=== PATIENT | male | born 1950 | race African-American/Black ===

== ENCOUNTER 2017-07-01 17:23 | Inpatient (IN) ==
[2017-07-01] MEDS ORDERED: DOCUSATE SODIUM 100 MG CAPSULE PO PRN (18:22)
[2017-07-01] MEDS ORDERED: ONDANSETRON 4 MG/2 ML VIAL IV PRN (18:22)
[2017-07-01 19:11] LABS: Basophils # 0.1 10*3/uL (0.0-0.2); Basophils % 0.5 % (0.0-0.8); Eosinophils # 0.1 10*3/uL (0.0-0.87); Eosinophils % 0.2 % (0.00-10.9); Hematocrit 39.5 VOL% (42.0-52.0); Hemoglobin 12.6 GM/DL (14.0-18.0); Immature Granulocytes % 0.7 %; Immature Granulocytes Absolute 0.14 #; Lymphocytes # 1.7 10*3/uL (1.4-4.0); Lymphocytes % 8.4 % (21.2-54.2); Mean Corpuscular HGB Conc 31.9 GM/DL (32-36); Mean Corpuscular Hemoglobin 29 PG (27-34); Mean Corpuscular Volume 89.8 FL (87-102); Mean Platelet Volume 9.5 FL (9.6-12.0); Monocytes # 2.1 10*3/uL (0.11-0.8); Monocytes % 10.1 % (1.7-12.7); Neutrophils # 16.6 10*3/uL (1.4-7.4); Neutrophils % 80.1 % (38.7-73.9); Platelet Count 161 T/CUMM (130-400); White Blood Count 20.8 T/CUMM (4-12)
[2017-07-01 19:37] LABS: Albumin 3.6 G/DL (3.4-5.0); Calcium 8.8 MG/DL (8.5-10.1); Osmolality,Calculated 276.7 MOS/KG (273-304); Potassium 3.9 MMOL/L (3.5-5.1); Total Protein 7.3 G/DL (6.4-8.3)
[2017-07-01] MEDS: LEVOFLOXACIN INJ 500 MG in PREMIX 1 EACH IV SCH (19:51)
[2017-07-01] MEDS: SODIUM CHLORIDE 0.9% 1,000 ML IV SCH (19:51)
[2017-07-01] MEDS ORDERED: ENOXAPARIN 30 MG/0.3 ML SYRINGE SUBCUT SCH (21:00)
[2017-07-01 21:39] LABS: Band Neutrophils 7 % (0-10); Eosinophils 1 % (0-10); Lymphocytes 2 % (20-55); Segmented Neutrophils 81 % (50-85); Total Cells Counted 100
[2017-07-01 22:35] LABS: Apearance,Urine Slightly Hazy (Clear); Bacteria,Urine Occasional /HPF (Few); Bilirubin,Urine Negative (Negative); Blood, Urine Small mg/dL (Negative); Glucose,Urine (UA) Negative (Negative); Ketones,Urine 5 mg/dL (Negative); Mucus,Urine Occasional /LPF (Occasional); Nitrite,Urine Negative (Negative); Protein,Urine 30 MG/DL; RBC,Urine 47 /HPF (0-4); Sperm,Urine Moderate /HPF (Negative); Urine Color Yellow (Yellow); Urine Specific Gravity 1.019 (1.001-1.035); WBC,Urine 27 /HPF (0-6)
[2017-07-02] MEDS: ACETAMINOPHEN 325 MG TABLET PO PRN ×2 (04:35→20:20)
[2017-07-02] MEDS: PANTOPRAZOLE 40 MG TABLET PO SCH (10:03)
[2017-07-02] MEDS: CHLORTHALIDONE 25 MG TABLET PO SCH (10:03)
[2017-07-02] MEDS: lamoTRIgine 100 MG TABLET PO SCH ×2 (10:03→20:19)
[2017-07-02] MEDS: CHOLECALCIFEROL 1,000 UNIT TABLET PO SCH (10:03)
[2017-07-02] MEDS ORDERED: MAGNESIUM HYDROXIDE SUSP 30 ML UDCUP PO PRN (11:58)
[2017-07-02] MEDS: HYDROCORTISONE 25 MG SUPP RECTAL SCH ×2 (16:42→20:25)
[2017-07-02] MEDS: SODIUM CHLORIDE 0.9% 1,000 ML IV SCH (18:09)
[2017-07-02] MEDS: DILTIAZEM CD 180 MG CAPSULE PO SCH (20:19)
[2017-07-02] MEDS: ENOXAPARIN 40 MG/0.4 ML SYRINGE SUBCUT SCH (20:20)
[2017-07-02] MEDS: LEVOFLOXACIN INJ 500 MG in PREMIX 1 EACH IV SCH (20:21)
[2017-07-02] MEDS: LATANOPROST 0.005% OPH SOLN 2.5 ML BOTTLE BOTH EYES SCH (20:25)
[2017-07-03 08:08] LABS: Basophils # 0.1 10*3/uL (0.0-0.2); Basophils % 0.5 % (0.0-0.8); Eosinophils # 0.2 10*3/uL (0.0-0.87); Eosinophils % 0.8 % (0.00-10.9); Hematocrit 41.3 VOL% (42.0-52.0); Hemoglobin 12.9 GM/DL (14.0-18.0); Immature Granulocytes % 0.9 %; Immature Granulocytes Absolute 0.21 #; Lymphocytes # 1.8 10*3/uL (1.4-4.0); Lymphocytes % 7.7 % (21.2-54.2); Mean Corpuscular HGB Conc 31.2 GM/DL (32-36); Mean Corpuscular Hemoglobin 28 PG (27-34); Mean Corpuscular Volume 89.6 FL (87-102); Mean Platelet Volume 10.1 FL (9.6-12.0); Monocytes # 2.1 10*3/uL (0.11-0.8); Monocytes % 8.9 % (1.7-12.7); Neutrophils # 18.7 10*3/uL (1.4-7.4); Neutrophils % 81.2 % (38.7-73.9); Platelet Count 170 T/CUMM (130-400); Red Blood Count 4.61 MC/CUMM (3.8-5.5); Red Cell Distribution Width 13.1 % (9.3-17.3)
[2017-07-03 08:25] LABS: Calcium 8.6 MG/DL (8.5-10.1); Osmolality,Calculated 276.7 MOS/KG (273-304); Potassium 3.7 MMOL/L (3.5-5.1)
[2017-07-03 08:26] LABS: Band Neutrophils 5 % (0-10); Lymphocytes 5 % (20-55); Segmented Neutrophils 78 % (50-85); Total Cells Counted 100
[2017-07-03 08:27] LABS: Hypochromasia 1+; Microcytosis Slight; Platelet Estimate Adequate
[2017-07-03] MEDS: CHOLECALCIFEROL 1,000 UNIT TABLET PO SCH (09:39)
[2017-07-03] MEDS: lamoTRIgine 100 MG TABLET PO SCH ×2 (09:40→20:31)
[2017-07-03] MEDS: PANTOPRAZOLE 40 MG TABLET PO SCH (09:40)
[2017-07-03] MEDS: HYDROCORTISONE 25 MG SUPP RECTAL SCH ×3 (09:40→20:31)
[2017-07-03] MEDS: CHLORTHALIDONE 25 MG TABLET PO SCH (09:40)
[2017-07-03] MEDS: METHEN/SOD PHOS/METH BLUE/HYOS TABLET PO SCH ×2 (09:55→16:32)
[2017-07-03] MEDS: LEVOFLOXACIN INJ 500 MG in PREMIX 1 EACH IV SCH (20:30)
[2017-07-03] MEDS: ENOXAPARIN 40 MG/0.4 ML SYRINGE SUBCUT SCH (20:30)
[2017-07-03] MEDS: SODIUM CHLORIDE 0.9% 1,000 ML IV SCH (20:31)
[2017-07-03] MEDS: DILTIAZEM CD 180 MG CAPSULE PO SCH (20:31)
[2017-07-03] MEDS: LATANOPROST 0.005% OPH SOLN 2.5 ML BOTTLE BOTH EYES SCH (20:32)
[2017-07-04 06:18] LABS: Basophils # 0.1 10*3/uL (0.0-0.2); Basophils % 0.5 % (0.0-0.8); Eosinophils # 0.2 10*3/uL (0.0-0.87); Eosinophils % 1.5 % (0.00-10.9); Hemoglobin 12.2 GM/DL (14.0-18.0); Immature Granulocytes % 0.8 %; Immature Granulocytes Absolute 0.12 #; Lymphocytes # 1.4 10*3/uL (1.4-4.0); Lymphocytes % 8.9 % (21.2-54.2); Mean Corpuscular Hemoglobin 29 PG (27-34); Mean Corpuscular Volume 87.1 FL (87-102); Mean Platelet Volume 9.7 FL (9.6-12.0); Monocytes # 2.1 10*3/uL (0.11-0.8); Monocytes % 13.4 % (1.7-12.7); Neutrophils # 11.9 10*3/uL (1.4-7.4); Neutrophils % 74.9 % (38.7-73.9); Platelet Count 169 T/CUMM (130-400); Red Blood Count 4.25 MC/CUMM (3.8-5.5); White Blood Count 15.8 T/CUMM (4-12)
[2017-07-04 06:50] LABS: Albumin 2.7 G/DL (3.4-5.0); Bilirubin,Total 0.8 MG/DL (0.2-1.0); Osmolality,Calculated 277.5 MOS/KG (273-304); Potassium 3.6 MMOL/L (3.5-5.1)
[2017-07-04] MEDS ORDERED: PIPERACILLIN/TAZOBACTAM 3,375 MG in SODIUM CHLORIDE 0.9% 100 ML IV SCH (08:00)
[2017-07-04] MEDS: CHLORTHALIDONE 25 MG TABLET PO SCH (09:15)
[2017-07-04] MEDS: CHOLECALCIFEROL 1,000 UNIT TABLET PO SCH (09:15)
[2017-07-04] MEDS: lamoTRIgine 100 MG TABLET PO SCH ×2 (09:15→21:33)
[2017-07-04] MEDS: METHEN/SOD PHOS/METH BLUE/HYOS TABLET PO SCH ×2 (09:16→17:48)
[2017-07-04] MEDS: PANTOPRAZOLE 40 MG TABLET PO SCH (09:16)
[2017-07-04] MEDS: HYDROCORTISONE 25 MG SUPP RECTAL SCH ×3 (09:16→21:34)
[2017-07-04] MEDS ORDERED: VANCOMYCIN INJ 1,250 MG in SODIUM CHLORIDE 0.9% 250 ML IV SCH (10:00)
[2017-07-04] MEDS: PHENAZOPYRIDINE 95 MG TABLET PO SCH (17:48)
[2017-07-04] MEDS: SODIUM CHLORIDE 0.9% 1,000 ML IV SCH (17:48)
[2017-07-04] MEDS: NAFCILLIN 2,000 MG in SODIUM CHLORIDE 0.9% 100 ML IV SCH ×2 (17:49→21:32)
[2017-07-04] MEDS: DILTIAZEM CD 180 MG CAPSULE PO SCH (21:33)
[2017-07-04] MEDS: ENOXAPARIN 40 MG/0.4 ML SYRINGE SUBCUT SCH (21:34)
[2017-07-04] MEDS: LATANOPROST 0.005% OPH SOLN 2.5 ML BOTTLE BOTH EYES SCH (21:39)
[2017-07-05] MEDS: NAFCILLIN 2,000 MG in SODIUM CHLORIDE 0.9% 100 ML IV SCH ×6 (00:52→20:53)
[2017-07-05 05:50] LABS: Basophils # 0.1 10*3/uL (0.0-0.2); Basophils % 1.2 % (0.0-0.8); Eosinophils # 0.3 10*3/uL (0.0-0.87); Eosinophils % 3.5 % (0.00-10.9); Hematocrit 37.8 VOL% (42.0-52.0); Hemoglobin 11.8 GM/DL (14.0-18.0); Immature Granulocytes % 0.9 %; Immature Granulocytes Absolute 0.07 #; Lymphocytes # 1.4 10*3/uL (1.4-4.0); Lymphocytes % 17.3 % (21.2-54.2); Mean Corpuscular HGB Conc 31.2 GM/DL (32-36); Mean Corpuscular Hemoglobin 28 PG (27-34); Mean Corpuscular Volume 89.4 FL (87-102); Mean Platelet Volume 9.7 FL (9.6-12.0); Monocytes # 1.2 10*3/uL (0.11-0.8); Monocytes % 14.9 % (1.7-12.7); Neutrophils # 4.9 10*3/uL (1.4-7.4); Neutrophils % 62.2 % (38.7-73.9); Platelet Count 182 T/CUMM (130-400); Red Blood Count 4.23 MC/CUMM (3.8-5.5); Red Cell Distribution Width 13.2 % (9.3-17.3); White Blood Count 7.8 T/CUMM (4-12)
[2017-07-05] MEDS: lamoTRIgine 100 MG TABLET PO SCH ×2 (09:00→20:53)
[2017-07-05] MEDS: PANTOPRAZOLE 40 MG TABLET PO SCH (09:00)
[2017-07-05] MEDS: PHENAZOPYRIDINE 95 MG TABLET PO SCH ×2 (09:00→17:13)
[2017-07-05] MEDS: CHOLECALCIFEROL 1,000 UNIT TABLET PO SCH (09:00)
[2017-07-05] MEDS: METHEN/SOD PHOS/METH BLUE/HYOS TABLET PO SCH ×2 (09:00→17:13)
[2017-07-05] MEDS: CHLORTHALIDONE 25 MG TABLET PO SCH (09:00)
[2017-07-05] MEDS: HYDROCORTISONE 25 MG SUPP RECTAL SCH ×3 (09:01→20:54)
[2017-07-05] MEDS: DILTIAZEM CD 180 MG CAPSULE PO SCH (20:53)
[2017-07-05] MEDS: LATANOPROST 0.005% OPH SOLN 2.5 ML BOTTLE BOTH EYES SCH (20:53)
[2017-07-05] MEDS: ENOXAPARIN 40 MG/0.4 ML SYRINGE SUBCUT SCH (20:54)
[2017-07-06] MEDS: NAFCILLIN 2,000 MG in SODIUM CHLORIDE 0.9% 100 ML IV SCH ×6 (01:00→20:32)
[2017-07-06] MEDS: SODIUM CHLORIDE 0.9% 1,000 ML IV SCH (03:50)
[2017-07-06] MEDS: PANTOPRAZOLE 40 MG TABLET PO SCH (09:41)
[2017-07-06] MEDS: CHLORTHALIDONE 25 MG TABLET PO SCH (09:41)
[2017-07-06] MEDS: PHENAZOPYRIDINE 95 MG TABLET PO SCH ×2 (09:41→18:05)
[2017-07-06] MEDS: CHOLECALCIFEROL 1,000 UNIT TABLET PO SCH (09:41)
[2017-07-06] MEDS: lamoTRIgine 100 MG TABLET PO SCH ×2 (09:41→20:33)
[2017-07-06] MEDS: HYDROCORTISONE 25 MG SUPP RECTAL SCH ×3 (09:42→20:34)
[2017-07-06] MEDS: METHEN/SOD PHOS/METH BLUE/HYOS TABLET PO SCH ×2 (09:42→18:05)
[2017-07-06] MEDS: ENOXAPARIN 40 MG/0.4 ML SYRINGE SUBCUT SCH (20:32)
[2017-07-06] MEDS: DILTIAZEM CD 180 MG CAPSULE PO SCH (20:33)
[2017-07-06] MEDS: LATANOPROST 0.005% OPH SOLN 2.5 ML BOTTLE BOTH EYES SCH (20:40)
[2017-07-07] MEDS: NAFCILLIN 2,000 MG in SODIUM CHLORIDE 0.9% 100 ML IV SCH ×6 (01:20→21:14)
[2017-07-07] MEDS: METHEN/SOD PHOS/METH BLUE/HYOS TABLET PO SCH ×2 (08:21→16:43)
[2017-07-07] MEDS: SODIUM CHLORIDE 0.9% 1,000 ML IV SCH (08:21)
[2017-07-07] MEDS: PANTOPRAZOLE 40 MG TABLET PO SCH (08:21)
[2017-07-07] MEDS: lamoTRIgine 100 MG TABLET PO SCH ×2 (08:22→21:13)
[2017-07-07] MEDS: CHLORTHALIDONE 25 MG TABLET PO SCH (08:22)
[2017-07-07] MEDS: PHENAZOPYRIDINE 95 MG TABLET PO SCH ×2 (08:22→16:43)
[2017-07-07] MEDS: HYDROCORTISONE 25 MG SUPP RECTAL SCH ×3 (08:22→21:14)
[2017-07-07] MEDS: CHOLECALCIFEROL 1,000 UNIT TABLET PO SCH (08:22)
[2017-07-07] MEDS: DILTIAZEM CD 180 MG CAPSULE PO SCH (21:13)
[2017-07-07] MEDS: LATANOPROST 0.005% OPH SOLN 2.5 ML BOTTLE BOTH EYES SCH (21:13)
[2017-07-07] MEDS: ENOXAPARIN 40 MG/0.4 ML SYRINGE SUBCUT SCH (21:13)
[2017-07-08] MEDS: NAFCILLIN 2,000 MG in SODIUM CHLORIDE 0.9% 100 ML IV SCH ×3 (01:20→08:11)
[2017-07-08] MEDS: PHENAZOPYRIDINE 95 MG TABLET PO SCH ×2 (08:10→17:13)
[2017-07-08] MEDS: PANTOPRAZOLE 40 MG TABLET PO SCH (08:10)
[2017-07-08] MEDS: CHLORTHALIDONE 25 MG TABLET PO SCH (08:10)
[2017-07-08] MEDS: CHOLECALCIFEROL 1,000 UNIT TABLET PO SCH (08:10)
[2017-07-08] MEDS: METHEN/SOD PHOS/METH BLUE/HYOS TABLET PO SCH ×2 (08:10→17:13)
[2017-07-08] MEDS: HYDROCORTISONE 25 MG SUPP RECTAL SCH ×3 (08:11→21:43)
[2017-07-08] MEDS: lamoTRIgine 100 MG TABLET PO SCH ×2 (08:11→21:43)
[2017-07-08] MEDS: SODIUM CHLORIDE 0.9% 1,000 ML IV SCH (10:28)
[2017-07-08 11:01] LABS: Basophils # 0.1 10*3/uL (0.0-0.2); Basophils % 1.2 % (0.0-0.8); Eosinophils # 0.2 10*3/uL (0.0-0.87); Hematocrit 41.4 VOL% (42.0-52.0); Hemoglobin 13.1 GM/DL (14.0-18.0); Immature Granulocytes % 2.2 %; Immature Granulocytes Absolute 0.17 #; Lymphocytes # 1.2 10*3/uL (1.4-4.0); Lymphocytes % 15.6 % (21.2-54.2); Mean Corpuscular HGB Conc 31.6 GM/DL (32-36); Mean Corpuscular Hemoglobin 28 PG (27-34); Mean Corpuscular Volume 89.2 FL (87-102); Mean Platelet Volume 9.3 FL (9.6-12.0); Monocytes # 0.8 10*3/uL (0.11-0.8); Monocytes % 9.8 % (1.7-12.7); Neutrophils # 5.2 10*3/uL (1.4-7.4); Neutrophils % 68.2 % (38.7-73.9); Platelet Count 245 T/CUMM (130-400); Red Blood Count 4.64 MC/CUMM (3.8-5.5); Red Cell Distribution Width 13.4 % (9.3-17.3); White Blood Count 7.7 T/CUMM (4-12)
[2017-07-08 11:28] LABS: Osmolality,Calculated 280.4 MOS/KG (273-304); Potassium 3.2 MMOL/L (3.5-5.1)
[2017-07-08] MEDS: cefTRIAXone 2,000 MG in SYRINGE 1 EACH IV SCH (13:20)
[2017-07-08 13:21] LABS: QuantiFERON-Tb Gold Pl Negative (Negative); TB1 Ag minus Nil Result 0.28 IU/mL; TB2 Ag Minus Result 0.24 IU/mL
[2017-07-08] MEDS: ENOXAPARIN 40 MG/0.4 ML SYRINGE SUBCUT SCH (21:43)
[2017-07-08] MEDS: DILTIAZEM CD 180 MG CAPSULE PO SCH (21:43)
[2017-07-08] MEDS: LATANOPROST 0.005% OPH SOLN 2.5 ML BOTTLE BOTH EYES SCH (21:46)
[2017-07-09 07:53] VITALS: BP 121/92
[2017-07-09] MEDS: lamoTRIgine 100 MG TABLET PO SCH (09:00)
[2017-07-09] MEDS: CHOLECALCIFEROL 1,000 UNIT TABLET PO SCH (09:00)
[2017-07-09] MEDS: METHEN/SOD PHOS/METH BLUE/HYOS TABLET PO SCH (09:01)
[2017-07-09] MEDS: PHENAZOPYRIDINE 95 MG TABLET PO SCH (09:01)
[2017-07-09] MEDS: PANTOPRAZOLE 40 MG TABLET PO SCH (09:01)
[2017-07-09] MEDS: CHLORTHALIDONE 25 MG TABLET PO SCH (09:01)
[2017-07-09] MEDS: HYDROCORTISONE 25 MG SUPP RECTAL SCH (09:03)
[2017-07-09] MEDS: cefTRIAXone 2,000 MG in SYRINGE 1 EACH IV SCH (10:19)
== END 2017-07-09 11:25 | disposition home or self-care (01) | DRG 872 ==
LOC: N.2E 17:37 → INTOOBSV 17:37
PROVIDERS: ADMIT Family Medicine; ATTEND Family Medicine

== ENCOUNTER 2020-07-27 01:41 | Inpatient (IN) ==
[2020-07-27] MEDS ORDERED: ONDANSETRON 4 MG/2 ML VIAL IV STA (02:13)
[2020-07-27] MEDS ORDERED: SODIUM CHLORIDE 0.9% 500 ML IV STA (02:13)
[2020-07-27] MEDS ORDERED: PANTOPRAZOLE 40 MG VIAL IV STA (02:13)
[2020-07-27 02:33] LABS: Basophils # 0.1 10*3/uL (0.0-0.2); Basophils % 0.9 % (0.0-0.8); Eosinophils # 0.2 10*3/uL (0.0-0.87); Hematocrit 40.4 VOL% (42.0-52.0); Hemoglobin 12.3 GM/DL (14.0-18.0); Immature Granulocytes % 0.5 %; Immature Granulocytes Absolute 0.04 #; Lymphocytes # 1.6 10*3/uL (1.4-4.0); Lymphocytes % 18.7 % (21.2-54.2); Mean Corpuscular HGB Conc 30.4 GM/DL (32-36); Mean Corpuscular Volume 93.1 FL (87-102); Mean Platelet Volume 9.5 FL (9.6-12.0); Neutrophils % 66.9 % (38.7-73.9); Platelet Count 195 T/CUMM (130-400); Red Blood Count 4.34 MC/CUMM (3.8-5.5); Red Cell Distribution Width 13.3 % (9.3-17.3); White Blood Count 8.5 T/CUMM (4-12)
[2020-07-27 02:50] LABS: Alanine Aminotransferase 16 U/L (16-61); Albumin 3.4 G/DL (3.4-5.0); Alkaline Phosphatase 80 U/L (45-117); Aspartate Amino Transferase 13 U/L (0-37); Bilirubin,Total < 0.39 MG/DL (0.2-1.0); Blood Urea Nitrogen 17 MG/DL (7-18); Calcium 9.1 MG/DL (8.5-10.1); Carbon Dioxide 30 MMOL/L (21-32); Estimated Glom Filtration Rate 49 ML/MIN; Glucose 126 MG/DL (74-106); Osmolality,Calculated 282.4 MOS/KG (273-304); Potassium 3.5 MMOL/L (3.5-5.1); Sodium 140 MMOL/L (136-145); Total Protein 7.5 G/DL (6.4-8.2)
[2020-07-27 02:54] LABS: INR 1.1; PT Patient Result 11.6 SECS (9.8-11.9)
[2020-07-27] MEDS ORDERED: ACETAMINOPHEN 325 MG TABLET PO PRN (04:39)
[2020-07-27] MEDS ORDERED: ONDANSETRON 4 MG/2 ML VIAL IV PRN (04:39)
[2020-07-27] MEDS ORDERED: SODIUM CHLORIDE 0.9% 1,000 ML IV SCH (04:39)
[2020-07-27 06:01] LABS: Basophils # 0.1 10*3/uL (0.0-0.2); Eosinophils # 0.1 10*3/uL (0.0-0.87); Eosinophils % 0.8 % (0.00-10.9); Hematocrit 33.4 VOL% (42.0-52.0); Immature Granulocytes % 0.4 %; Immature Granulocytes Absolute 0.04 #; Lymphocytes # 1.2 10*3/uL (1.4-4.0); Lymphocytes % 12.7 % (21.2-54.2); Mean Corpuscular HGB Conc 30.2 GM/DL (32-36); Mean Corpuscular Volume 93.8 FL (87-102); Mean Platelet Volume 10.1 FL (9.6-12.0); Neutrophils % 78.1 % (38.7-73.9); Platelet Count 171 T/CUMM (130-400); Red Blood Count 3.56 MC/CUMM (3.8-5.5); Red Cell Distribution Width 13.2 % (9.3-17.3); White Blood Count 9.6 T/CUMM (4-12)
[2020-07-27 06:04] LABS: Hemoglobin 10.1 GM/DL (14.0-18.0)
[2020-07-27] MEDS: SODIUM CHLORIDE 0.9% 1,000 ML IV SCH (08:56)
[2020-07-27] MEDS: PANTOPRAZOLE 40 MG VIAL IV SCH (08:56)
[2020-07-27] MEDS: DOCUSATE SODIUM 100 MG CAPSULE PO SCH ×2 (08:57→20:32)
[2020-07-27] MEDS ORDERED: SODIUM CHLORIDE 0.9% 1,000 ML IV PRN (09:36)
[2020-07-27 11:56] LABS: Hematocrit 30.5 VOL% (42.0-52.0); Hemoglobin 9.4 GM/DL (14.0-18.0)
[2020-07-27] MEDS: lamoTRIgine 100 MG TABLET PO SCH (20:32)
[2020-07-27] MEDS: LATANOPROST 0.005% OPH SOLN 2.5 ML BOTTLE BOTH EYES SCH (20:35)
[2020-07-27 23:46] LABS: Hematocrit 28.6 VOL% (42.0-52.0); Hemoglobin 8.7 GM/DL (14.0-18.0)
[2020-07-28] MEDS: SODIUM CHLORIDE 0.9% 1,000 ML IV SCH (04:48)
[2020-07-28 06:21] LABS: Albumin 2.7 G/DL (3.4-5.0); Bilirubin,Total 0.5 MG/DL (0.2-1.0); Calcium 8.1 MG/DL (8.5-10.1); Osmolality,Calculated 283.1 MOS/KG (273-304); Potassium 4.2 MMOL/L (3.5-5.1); Total Protein 5.6 G/DL (6.4-8.2)
[2020-07-28 08:08] LABS: Hematocrit 26.4 VOL% (42.0-52.0); Hemoglobin 7.9 GM/DL (14.0-18.0)
[2020-07-28] MEDS ORDERED: SODIUM CHLORIDE 0.9% 1,000 ML IV PRN (08:46)
[2020-07-28] MEDS: PANTOPRAZOLE 40 MG VIAL IV SCH (09:00)
[2020-07-28] MEDS: lamoTRIgine 100 MG TABLET PO SCH ×2 (09:00→20:55)
[2020-07-28] MEDS: DOCUSATE SODIUM 100 MG CAPSULE PO SCH ×2 (09:00→20:55)
[2020-07-28] MEDS ORDERED: BISACODYL 5 MG TABLET PO ONE (12:00)
[2020-07-28 14:22] LABS: Hemoglobin 8.7 GM/DL (14.0-18.0)
[2020-07-28] MEDS ORDERED: POLYETHYLENE GLYCOL POWDER 255 GM BOTTLE PO ONE (18:00)
[2020-07-28] MEDS: LATANOPROST 0.005% OPH SOLN 2.5 ML BOTTLE BOTH EYES SCH (20:55)
[2020-07-29] MEDS: SODIUM CHLORIDE 0.9% 1,000 ML IV SCH ×2 (01:41→22:22)
[2020-07-29 02:50] LABS: Hematocrit 28.2 VOL% (42.0-52.0); Hemoglobin 9.1 GM/DL (14.0-18.0)
[2020-07-29 04:14] LABS: Hematocrit 27.2 VOL% (42.0-52.0); Hemoglobin 8.5 GM/DL (14.0-18.0); Lymphocytes % 11.2 % (21.2-54.2); Mean Corpuscular HGB Conc 31.3 GM/DL (32-36); Mean Corpuscular Volume 91.6 FL (87-102); Mean Platelet Volume 10.2 FL (9.6-12.0); Monocytes % 9.7 % (1.7-12.7); Neutrophils % 77.1 % (38.7-73.9); Platelet Count 145 T/CUMM (130-400); Red Blood Count 2.97 MC/CUMM (3.8-5.5); Red Cell Distribution Width 14.2 % (9.3-17.3); White Blood Count 10.8 T/CUMM (4-12)
[2020-07-29 04:15] LABS: Basophils # 0.1 10*3/uL (0.0-0.2); Basophils % 0.7 % (0.0-0.8); Eosinophils # 0.1 10*3/uL (0.0-0.87); Eosinophils % 0.6 % (0.00-10.9); Immature Granulocytes % 0.7 %; Immature Granulocytes Absolute 0.08 #; Lymphocytes # 1.2 10*3/uL (1.4-4.0)
[2020-07-29 05:08] LABS: INR 1.1; PT Patient Result 12.1 SECS (9.8-11.9)
[2020-07-29] MEDS: PANTOPRAZOLE 40 MG VIAL IV SCH (09:34)
[2020-07-29] MEDS: DOCUSATE SODIUM 100 MG CAPSULE PO SCH ×2 (09:34→20:22)
[2020-07-29] MEDS: lamoTRIgine 100 MG TABLET PO SCH ×2 (09:34→20:23)
[2020-07-29 10:47] LABS: Hematocrit 25.2 VOL% (42.0-52.0); Hemoglobin 7.9 GM/DL (14.0-18.0)
[2020-07-29] MEDS: LACTATED RINGERS 1,000 ML IV SCH (11:41)
[2020-07-29] MEDS ORDERED: ETOMIDATE 20 MG/10 ML VIAL IV ONE (12:41)
[2020-07-29] MEDS ORDERED: LIDOCAINE 2% 5 ML VIAL ONE (12:41)
[2020-07-29] MEDS ORDERED: PHENYLEPHRINE 1 MG/10 ML SYRINGE IV ONE (12:41)
[2020-07-29] MEDS ORDERED: propofoL 200 MG/20 ML VIAL IV ONE (12:41)
[2020-07-29] MEDS ORDERED: GLYCOPYRROLATE 0.4 MG/2 ML VIAL ONE (12:42)
[2020-07-29 14:01] LABS: Hematocrit 26.3 VOL% (42.0-52.0); Hemoglobin 8.3 GM/DL (14.0-18.0)
[2020-07-29] MEDS: LATANOPROST 0.005% OPH SOLN 2.5 ML BOTTLE BOTH EYES SCH (20:22)
[2020-07-30] MEDS: PANTOPRAZOLE 40 MG VIAL IV SCH (09:06)
[2020-07-30] MEDS: lamoTRIgine 100 MG TABLET PO SCH ×2 (09:06→20:30)
[2020-07-30] MEDS: DOCUSATE SODIUM 100 MG CAPSULE PO SCH ×2 (09:07→20:34)
[2020-07-30] MEDS: LACTATED RINGERS 1,000 ML IV SCH (20:25)
[2020-07-30] MEDS: SODIUM CHLORIDE 0.9% 1,000 ML IV SCH (20:30)
[2020-07-30] MEDS: LATANOPROST 0.005% OPH SOLN 2.5 ML BOTTLE BOTH EYES SCH (20:31)
[2020-07-31 05:57] LABS: Basophils # 0.1 10*3/uL (0.0-0.2); Basophils % 0.4 % (0.0-0.8); Eosinophils # 0.1 10*3/uL (0.0-0.87); Eosinophils % 0.9 % (0.00-10.9); Hematocrit 20.7 VOL% (42.0-52.0); Hemoglobin 6.6 GM/DL (14.0-18.0); Immature Granulocytes % 0.7 %; Immature Granulocytes Absolute 0.08 #; Lymphocytes # 1.9 10*3/uL (1.4-4.0); Lymphocytes % 15.9 % (21.2-54.2); Mean Corpuscular HGB Conc 31.9 GM/DL (32-36); Mean Corpuscular Volume 91.6 FL (87-102); Mean Platelet Volume 11.4 FL (9.6-12.0); Monocytes % 11.3 % (1.7-12.7); Neutrophils % 70.8 % (38.7-73.9); Platelet Count 88 T/CUMM (130-400); Red Blood Count 2.26 MC/CUMM (3.8-5.5); Red Cell Distribution Width 15.5 % (9.3-17.3); White Blood Count 11.9 T/CUMM (4-12)
[2020-07-31 06:37] LABS: Calcium 7.9 MG/DL (8.5-10.1); Osmolality,Calculated 277.4 MOS/KG (273-304)
[2020-07-31] MEDS: lamoTRIgine 100 MG TABLET PO SCH ×2 (09:36→22:08)
[2020-07-31 09:37] LABS: Platelet Estimate Adequate
[2020-07-31] MEDS: DOCUSATE SODIUM 100 MG CAPSULE PO SCH ×2 (09:37→22:05)
[2020-07-31] MEDS: LACTATED RINGERS 1,000 ML IV SCH (09:37)
[2020-07-31] MEDS: PANTOPRAZOLE 40 MG VIAL IV SCH (09:37)
[2020-07-31 09:38] LABS: Polychromasia Slight
[2020-07-31 11:56] LABS: Hematocrit 21.3 VOL% (42.0-52.0)
[2020-07-31 12:00] LABS: Hemoglobin 6.4 GM/DL (14.0-18.0)
[2020-07-31] MEDS: LATANOPROST 0.005% OPH SOLN 2.5 ML BOTTLE BOTH EYES SCH (22:08)
[2020-08-01] MEDS: SODIUM CHLORIDE 0.9% 1,000 ML IV SCH ×2 (02:45→11:09)
[2020-08-01 05:56] LABS: Basophils # 0.1 10*3/uL (0.0-0.2); Basophils % 0.6 % (0.0-0.8); Eosinophils # 0.2 10*3/uL (0.0-0.87); Eosinophils % 1.6 % (0.00-10.9); Hemoglobin 7.1 GM/DL (14.0-18.0); Immature Granulocytes % 0.7 %; Immature Granulocytes Absolute 0.08 #; Lymphocytes % 18.7 % (21.2-54.2); Mean Corpuscular HGB Conc 32.3 GM/DL (32-36); Mean Corpuscular Volume 87.3 FL (87-102); Mean Platelet Volume 9.8 FL (9.6-12.0); Monocytes % 12.3 % (1.7-12.7); Neutrophils % 66.1 % (38.7-73.9); Platelet Count 139 T/CUMM (130-400); Red Blood Count 2.52 MC/CUMM (3.8-5.5); Red Cell Distribution Width 16.7 % (9.3-17.3); White Blood Count 10.8 T/CUMM (4-12)
[2020-08-01 06:18] LABS: Calcium 7.7 MG/DL (8.5-10.1); Potassium 3.6 MMOL/L (3.5-5.1)
[2020-08-01] MEDS: LACTATED RINGERS 1,000 ML IV SCH (07:36)
[2020-08-01] MEDS: lamoTRIgine 100 MG TABLET PO SCH ×2 (08:16→20:57)
[2020-08-01] MEDS: PANTOPRAZOLE 40 MG VIAL IV SCH (08:16)
[2020-08-01] MEDS: DOCUSATE SODIUM 100 MG CAPSULE PO SCH ×2 (08:17→20:58)
[2020-08-01] MEDS ORDERED: SODIUM CHLORIDE 0.9% 1,000 ML IV PRN (08:33)
[2020-08-01 18:33] LABS: Hematocrit 23.1 VOL% (42.0-52.0); Hemoglobin 7.2 GM/DL (14.0-18.0)
[2020-08-01] MEDS: LATANOPROST 0.005% OPH SOLN 2.5 ML BOTTLE BOTH EYES SCH (20:58)
[2020-08-02 06:14] LABS: Basophils # 0.1 10*3/uL (0.0-0.2); Basophils % 0.5 % (0.0-0.8); Eosinophils # 0.2 10*3/uL (0.0-0.87); Eosinophils % 1.6 % (0.00-10.9); Hematocrit 19.9 VOL% (42.0-52.0); Immature Granulocytes % 0.8 %; Immature Granulocytes Absolute 0.09 #; Lymphocytes # 1.7 10*3/uL (1.4-4.0); Mean Corpuscular HGB Conc 32.2 GM/DL (32-36); Mean Corpuscular Volume 87.3 FL (87-102); Mean Platelet Volume 9.9 FL (9.6-12.0); Monocytes % 10.6 % (1.7-12.7); Neutrophils % 70.5 % (38.7-73.9); Platelet Count 134 T/CUMM (130-400); Red Blood Count 2.28 MC/CUMM (3.8-5.5); Red Cell Distribution Width 16.1 % (9.3-17.3); White Blood Count 10.7 T/CUMM (4-12)
[2020-08-02 06:28] LABS: Calcium 7.3 MG/DL (8.5-10.1); Osmolality,Calculated 287.7 MOS/KG (273-304); Potassium 4.1 MMOL/L (3.5-5.1)
[2020-08-02 06:55] LABS: Hemoglobin 6.4 GM/DL (14.0-18.0)
[2020-08-02] MEDS ORDERED: SODIUM CHLORIDE 0.9% 1,000 ML IV PRN ×2 (07:10→08:50)
[2020-08-02] MEDS: DOCUSATE SODIUM 100 MG CAPSULE PO SCH ×2 (08:13→22:32)
[2020-08-02] MEDS: lamoTRIgine 100 MG TABLET PO SCH ×2 (08:17→21:26)
[2020-08-02] MEDS: PANTOPRAZOLE 40 MG VIAL IV SCH (08:18)
[2020-08-02 17:50] LABS: Hematocrit 24.5 VOL% (42.0-52.0); Hemoglobin 7.9 GM/DL (14.0-18.0)
[2020-08-02] MEDS: LATANOPROST 0.005% OPH SOLN 2.5 ML BOTTLE BOTH EYES SCH (21:27)
[2020-08-03 05:59] LABS: Basophils # 0.1 10*3/uL (0.0-0.2); Basophils % 0.6 % (0.0-0.8); Eosinophils # 0.2 10*3/uL (0.0-0.87); Eosinophils % 1.7 % (0.00-10.9); Hematocrit 21.2 VOL% (42.0-52.0); Hemoglobin 6.8 GM/DL (14.0-18.0); Lymphocytes # 1.6 10*3/uL (1.4-4.0); Lymphocytes % 15.3 % (21.2-54.2); Mean Corpuscular HGB Conc 32.1 GM/DL (32-36); Mean Corpuscular Volume 88.3 FL (87-102); Mean Platelet Volume 9.8 FL (9.6-12.0); Monocytes % 10.3 % (1.7-12.7); Neutrophils % 71.1 % (38.7-73.9); Platelet Count 136 T/CUMM (130-400); Red Cell Distribution Width 15.7 % (9.3-17.3); White Blood Count 10.4 T/CUMM (4-12)
[2020-08-03] MEDS: PANTOPRAZOLE 40 MG VIAL IV SCH (08:51)
[2020-08-03] MEDS: lamoTRIgine 100 MG TABLET PO SCH ×2 (08:52→20:19)
[2020-08-03] MEDS: DOCUSATE SODIUM 100 MG CAPSULE PO SCH ×2 (08:52→20:12)
[2020-08-03 18:01] LABS: Hemoglobin 6.9 GM/DL (14.0-18.0)
[2020-08-03] MEDS ORDERED: SODIUM CHLORIDE 0.9% 1,000 ML IV PRN (19:14)
[2020-08-03] MEDS: LATANOPROST 0.005% OPH SOLN 2.5 ML BOTTLE BOTH EYES SCH (20:20)
[2020-08-04 05:44] LABS: Basophils # 0.1 10*3/uL (0.0-0.2); Basophils % 0.7 % (0.0-0.8); Eosinophils # 0.2 10*3/uL (0.0-0.87); Eosinophils % 2.1 % (0.00-10.9); Hematocrit 23.8 VOL% (42.0-52.0); Hemoglobin 7.6 GM/DL (14.0-18.0); Immature Granulocytes % 1.2 %; Immature Granulocytes Absolute 0.14 #; Lymphocytes # 1.9 10*3/uL (1.4-4.0); Lymphocytes % 16.9 % (21.2-54.2); Mean Corpuscular HGB Conc 31.9 GM/DL (32-36); Mean Corpuscular Volume 87.8 FL (87-102); Mean Platelet Volume 9.5 FL (9.6-12.0); Monocytes % 11.5 % (1.7-12.7); Neutrophils % 67.6 % (38.7-73.9); Platelet Count 148 T/CUMM (130-400); Red Blood Count 2.71 MC/CUMM (3.8-5.5); Red Cell Distribution Width 15.5 % (9.3-17.3); White Blood Count 11.3 T/CUMM (4-12)
[2020-08-04 06:08] LABS: Calcium 7.4 MG/DL (8.5-10.1); Osmolality,Calculated 282.1 MOS/KG (273-304); Potassium 4.1 MMOL/L (3.5-5.1)
[2020-08-04] MEDS ORDERED: ceFAZolin 1,000 MG in SYRINGE 1 EACH IV ONE (07:30)
[2020-08-04] MEDS ORDERED: DIAZEPAM 5 MG TABLET PO ONE (07:30)
[2020-08-04] MEDS ORDERED: MIDAZOLAM 2 MG/2 ML VIAL IV ONE (09:00)
[2020-08-04] MEDS ORDERED: fentaNYL 100 MCG/2 ML VIAL IV ONE (09:00)
[2020-08-04] MEDS: DOCUSATE SODIUM 100 MG CAPSULE PO SCH ×2 (11:19→20:37)
[2020-08-04] MEDS: lamoTRIgine 100 MG TABLET PO SCH ×2 (11:20→20:36)
[2020-08-04] MEDS: PANTOPRAZOLE 40 MG VIAL IV SCH (11:21)
[2020-08-04] MEDS ORDERED: HEPARIN/NACL 0.9% 2 UNITS/ML 2,000 ML IV ONE (13:10)
[2020-08-04] MEDS: LATANOPROST 0.005% OPH SOLN 2.5 ML BOTTLE BOTH EYES SCH (20:37)
[2020-08-05 07:32] LABS: Basophils # 0.1 10*3/uL (0.0-0.2); Basophils % 0.6 % (0.0-0.8); Eosinophils # 0.2 10*3/uL (0.0-0.87); Eosinophils % 1.7 % (0.00-10.9); Hematocrit 21.3 VOL% (42.0-52.0); Hemoglobin 6.5 GM/DL (14.0-18.0); Immature Granulocytes % 0.9 %; Lymphocytes # 1.5 10*3/uL (1.4-4.0); Lymphocytes % 14.3 % (21.2-54.2); Mean Corpuscular HGB Conc 30.5 GM/DL (32-36); Mean Corpuscular Volume 92.2 FL (87-102); Mean Platelet Volume 9.1 FL (9.6-12.0); Monocytes % 11.1 % (1.7-12.7); Neutrophils % 71.4 % (38.7-73.9); Platelet Count 169 T/CUMM (130-400); Red Blood Count 2.31 MC/CUMM (3.8-5.5); Red Cell Distribution Width 15.9 % (9.3-17.3); White Blood Count 10.6 T/CUMM (4-12)
[2020-08-05 07:51] LABS: Calcium 7.5 MG/DL (8.5-10.1); Osmolality,Calculated 282.1 MOS/KG (273-304); Potassium 3.8 MMOL/L (3.5-5.1)
[2020-08-05] MEDS: lamoTRIgine 100 MG TABLET PO SCH ×2 (08:19→20:28)
[2020-08-05] MEDS: PANTOPRAZOLE 40 MG VIAL IV SCH (08:21)
[2020-08-05] MEDS: DOCUSATE SODIUM 100 MG CAPSULE PO SCH ×2 (08:56→20:28)
[2020-08-05 10:51] LABS: INR 1.1; PT Patient Result 11.9 SECS (9.8-11.9); Partial Thromboplastin Time 25.1 SECS (23.9-33.8)
[2020-08-05] MEDS: LATANOPROST 0.005% OPH SOLN 2.5 ML BOTTLE BOTH EYES SCH (20:33)
[2020-08-05] MEDS: SODIUM CHLORIDE 0.9% 1,000 ML IV SCH (21:58)
[2020-08-05 22:40] LABS: Hematocrit 25.9 VOL% (42.0-52.0)
[2020-08-05 22:41] LABS: Hemoglobin 8.1 GM/DL (14.0-18.0)
[2020-08-06] MEDS: SODIUM CHLORIDE 0.9% 1,000 ML IV SCH ×3 (05:53→22:00)
[2020-08-06] MEDS: PANTOPRAZOLE 40 MG VIAL IV SCH (08:07)
[2020-08-06] MEDS: lamoTRIgine 100 MG TABLET PO SCH ×2 (08:11→20:52)
[2020-08-06] MEDS: DOCUSATE SODIUM 100 MG CAPSULE PO SCH (08:57)
[2020-08-06] MEDS: POLYETHYLENE GLYCOL POWDER 17 GM PACK PO SCH ×2 (14:23→20:52)
[2020-08-06] MEDS: LATANOPROST 0.005% OPH SOLN 2.5 ML BOTTLE BOTH EYES SCH (20:52)
[2020-08-07 07:47] LABS: Basophils # 0.1 10*3/uL (0.0-0.2); Basophils % 0.6 % (0.0-0.8); Eosinophils # 0.2 10*3/uL (0.0-0.87); Eosinophils % 1.7 % (0.00-10.9); Hematocrit 21.5 VOL% (42.0-52.0); Hemoglobin 6.8 GM/DL (14.0-18.0); Immature Granulocytes % 0.8 %; Immature Granulocytes Absolute 0.07 #; Lymphocytes % 11.2 % (21.2-54.2); Mean Corpuscular HGB Conc 31.6 GM/DL (32-36); Mean Platelet Volume 9.2 FL (9.6-12.0); Neutrophils % 75.7 % (38.7-73.9); Platelet Count 207 T/CUMM (130-400); Red Blood Count 2.39 MC/CUMM (3.8-5.5); Red Cell Distribution Width 16.2 % (9.3-17.3); White Blood Count 8.6 T/CUMM (4-12)
[2020-08-07 07:56] LABS: Calcium 7.3 MG/DL (8.5-10.1); Osmolality,Calculated 283.8 MOS/KG (273-304); Potassium 3.8 MMOL/L (3.5-5.1)
[2020-08-07] MEDS: lamoTRIgine 100 MG TABLET PO SCH ×2 (08:34→21:41)
[2020-08-07] MEDS: POLYETHYLENE GLYCOL POWDER 17 GM PACK PO SCH ×3 (08:34→21:41)
[2020-08-07] MEDS: PANTOPRAZOLE 40 MG VIAL IV SCH (08:35)
[2020-08-07] MEDS ORDERED: SODIUM CHLORIDE 0.9% 1,000 ML IV PRN (09:13)
[2020-08-07] MEDS: SODIUM CHLORIDE 0.9% 1,000 ML IV SCH (12:13)
[2020-08-07] MEDS: LATANOPROST 0.005% OPH SOLN 2.5 ML BOTTLE BOTH EYES SCH (21:42)
[2020-08-08 07:48] LABS: Basophils # 0.1 10*3/uL (0.0-0.2); Basophils % 0.7 % (0.0-0.8); Eosinophils # 0.2 10*3/uL (0.0-0.87); Eosinophils % 2.2 % (0.00-10.9); Hematocrit 26.7 VOL% (42.0-52.0); Immature Granulocytes % 1.1 %; Immature Granulocytes Absolute 0.09 #; Lymphocytes % 12.2 % (21.2-54.2); Mean Corpuscular HGB Conc 31.1 GM/DL (32-36); Mean Corpuscular Volume 91.1 FL (87-102); Mean Platelet Volume 9.1 FL (9.6-12.0); Monocytes % 10.8 % (1.7-12.7); Platelet Count 216 T/CUMM (130-400); Red Blood Count 2.93 MC/CUMM (3.8-5.5); Red Cell Distribution Width 15.9 % (9.3-17.3); White Blood Count 8.5 T/CUMM (4-12)
[2020-08-08 07:49] LABS: Hemoglobin 8.3 GM/DL (14.0-18.0)
[2020-08-08] MEDS: PANTOPRAZOLE 40 MG VIAL IV SCH (08:53)
[2020-08-08] MEDS: POLYETHYLENE GLYCOL POWDER 17 GM PACK PO SCH ×3 (08:59→20:44)
[2020-08-08] MEDS: lamoTRIgine 100 MG TABLET PO SCH ×2 (08:59→20:44)
[2020-08-08] MEDS ORDERED: HEPARIN DRIP 25,000 UNITS/500 ML PREMIX IV SCH (12:30)
[2020-08-08] MEDS ORDERED: SODIUM CHLORIDE 0.9% 1,000 ML IV PRN (13:43)
[2020-08-08] MEDS ORDERED: ceFAZolin 1,000 MG in SYRINGE 1 EACH IV ONE ×2 (13:59→14:02)
[2020-08-08] MEDS ORDERED: HEPARIN/NACL 0.9% 2 UNITS/ML 3,000 ML IV ONE (14:02)
[2020-08-08] MEDS ORDERED: ALTEPLASE 2 MG VIAL ONE (15:22)
[2020-08-08 16:23] LABS: Basophils # 0.1 10*3/uL (0.0-0.2); Basophils % 0.5 % (0.0-0.8); Eosinophils # 0.2 10*3/uL (0.0-0.87); Eosinophils % 1.7 % (0.00-10.9); Hematocrit 21.4 VOL% (42.0-52.0); Hemoglobin 6.8 GM/DL (14.0-18.0); Immature Granulocytes % 0.8 %; Immature Granulocytes Absolute 0.08 #; Lymphocytes # 1.5 10*3/uL (1.4-4.0); Lymphocytes % 15.2 % (21.2-54.2); Mean Corpuscular HGB Conc 31.8 GM/DL (32-36); Mean Corpuscular Volume 89.2 FL (87-102); Mean Platelet Volume 8.9 FL (9.6-12.0); Monocytes % 10.2 % (1.7-12.7); Neutrophils % 71.6 % (38.7-73.9); Platelet Count 196 T/CUMM (130-400); Red Cell Distribution Width 15.8 % (9.3-17.3); White Blood Count 10.1 T/CUMM (4-12)
[2020-08-08] MEDS ORDERED: propofoL 200 MG/20 ML VIAL IV ONE (17:07)
[2020-08-08] MEDS ORDERED: LIDOCAINE 2% 5 ML VIAL ONE (17:07)
[2020-08-08] MEDS ORDERED: PHENYLEPHRINE 1 MG/10 ML SYRINGE IV ONE (17:08)
[2020-08-08] MEDS ORDERED: CALCIUM CHLORIDE 1,000 MG/10 ML VIAL IV ONE (17:08)
[2020-08-08] MEDS ORDERED: GLYCOPYRROLATE 0.4 MG/2 ML VIAL ONE (17:08)
[2020-08-08] MEDS ORDERED: SEVOFLURANE 1 UNIT/15 MINUTE INH ONE (17:08)
[2020-08-08] MEDS ORDERED: NEOSTIGMINE 10 MG/10 ML VIAL ONE (17:09)
[2020-08-08] MEDS ORDERED: ROCURONIUM 50 MG/5 ML VIAL IV ONE (17:09)
[2020-08-08] MEDS ORDERED: LACTATED RINGERS 2,000 ML IV ONE (17:09)
[2020-08-08] MEDS: SODIUM CHLORIDE 0.9% 1,000 ML IV SCH (17:11)
[2020-08-08] MEDS: LATANOPROST 0.005% OPH SOLN 2.5 ML BOTTLE BOTH EYES SCH (20:44)
[2020-08-09] MEDS: SODIUM CHLORIDE 0.9% 1,000 ML IV SCH ×2 (04:17→16:26)
[2020-08-09 05:12] LABS: Basophils # 0.1 10*3/uL (0.0-0.2); Basophils % 0.6 % (0.0-0.8); Eosinophils # 0.2 10*3/uL (0.0-0.87); Eosinophils % 1.8 % (0.00-10.9); Hematocrit 33.3 VOL% (42.0-52.0); Immature Granulocytes % 0.8 %; Immature Granulocytes Absolute 0.09 #; Lymphocytes % 9.1 % (21.2-54.2); Mean Corpuscular HGB Conc 32.1 GM/DL (32-36); Mean Corpuscular Volume 88.6 FL (87-102); Monocytes % 9.4 % (1.7-12.7); Neutrophils % 78.3 % (38.7-73.9); Platelet Count 216 T/CUMM (130-400); Red Blood Count 3.76 MC/CUMM (3.8-5.5); Red Cell Distribution Width 15.8 % (9.3-17.3); White Blood Count 10.9 T/CUMM (4-12)
[2020-08-09 05:13] LABS: Hemoglobin 10.7 GM/DL (14.0-18.0)
[2020-08-09] MEDS: PANTOPRAZOLE 40 MG VIAL IV SCH (08:36)
[2020-08-09] MEDS: lamoTRIgine 100 MG TABLET PO SCH ×2 (08:36→21:44)
[2020-08-09] MEDS: POLYETHYLENE GLYCOL POWDER 17 GM PACK PO SCH ×3 (08:36→21:45)
[2020-08-09 16:11] LABS: Basophils # 0.1 10*3/uL (0.0-0.2); Basophils % 0.5 % (0.0-0.8); Eosinophils # 0.2 10*3/uL (0.0-0.87); Eosinophils % 1.2 % (0.00-10.9); Hematocrit 36.7 VOL% (42.0-52.0); Hemoglobin 11.5 GM/DL (14.0-18.0); Immature Granulocytes % 0.9 %; Immature Granulocytes Absolute 0.12 #; Lymphocytes # 0.8 10*3/uL (1.4-4.0); Lymphocytes % 5.9 % (21.2-54.2); Mean Corpuscular HGB Conc 31.3 GM/DL (32-36); Mean Corpuscular Volume 90.6 FL (87-102); Mean Platelet Volume 10.7 FL (9.6-12.0); Monocytes % 9.2 % (1.7-12.7); Neutrophils % 82.3 % (38.7-73.9); Platelet Count 151 T/CUMM (130-400); Red Blood Count 4.05 MC/CUMM (3.8-5.5); Red Cell Distribution Width 15.8 % (9.3-17.3); White Blood Count 13.1 T/CUMM (4-12)
[2020-08-09] MEDS: LATANOPROST 0.005% OPH SOLN 2.5 ML BOTTLE BOTH EYES SCH (21:44)
[2020-08-10] MEDS: SODIUM CHLORIDE 0.9% 1,000 ML IV SCH (01:18)
[2020-08-10 05:50] LABS: Basophils # 0.1 10*3/uL (0.0-0.2); Basophils % 0.5 % (0.0-0.8); Eosinophils # 0.2 10*3/uL (0.0-0.87); Eosinophils % 2.1 % (0.00-10.9); Hematocrit 29.6 VOL% (42.0-52.0); Hemoglobin 9.2 GM/DL (14.0-18.0); Immature Granulocytes % 0.7 %; Immature Granulocytes Absolute 0.07 #; Lymphocytes # 0.9 10*3/uL (1.4-4.0); Lymphocytes % 9.5 % (21.2-54.2); Mean Corpuscular HGB Conc 31.1 GM/DL (32-36); Mean Corpuscular Volume 91.1 FL (87-102); Mean Platelet Volume 9.1 FL (9.6-12.0); Monocytes % 10.8 % (1.7-12.7); Neutrophils % 76.4 % (38.7-73.9); Platelet Count 249 T/CUMM (130-400); Red Blood Count 3.25 MC/CUMM (3.8-5.5); Red Cell Distribution Width 15.7 % (9.3-17.3); White Blood Count 9.7 T/CUMM (4-12)
[2020-08-10] MEDS: lamoTRIgine 100 MG TABLET PO SCH ×2 (09:48→20:52)
[2020-08-10] MEDS: POLYETHYLENE GLYCOL POWDER 17 GM PACK PO SCH ×3 (09:48→20:54)
[2020-08-10] MEDS: PANTOPRAZOLE 40 MG VIAL IV SCH (09:48)
[2020-08-10] MEDS ORDERED: SODIUM CHLORIDE 0.9% 1,000 ML IV PRN ×2 (09:48→11:19)
[2020-08-10] MEDS ORDERED: cefOXitin 2,000 MG in SYRINGE 1 EACH IV ONE (10:33)
[2020-08-10] MEDS ORDERED: ROCURONIUM 50 MG/5 ML VIAL IV ONE (10:50)
[2020-08-10] MEDS ORDERED: DEXAMETHASONE 4 MG/1 ML VIAL ONE (10:50)
[2020-08-10] MEDS ORDERED: MIDAZOLAM 2 MG/2 ML VIAL ONE (10:50)
[2020-08-10] MEDS ORDERED: ONDANSETRON 4 MG/2 ML VIAL ONE (10:50)
[2020-08-10] MEDS ORDERED: SUCCINYLCHOLINE 200 MG/10 ML VIAL ONE (10:50)
[2020-08-10] MEDS ORDERED: LIDOCAINE 2% 5 ML VIAL ONE (10:50)
[2020-08-10] MEDS ORDERED: ETOMIDATE 40 MG/20 ML VIAL IV ONE (10:50)
[2020-08-10] MEDS ORDERED: fentaNYL 100 MCG/2 ML VIAL ONE (10:51)
[2020-08-10] MEDS ORDERED: CALCIUM CHLORIDE 1,000 MG/10 ML VIAL IV ONE (10:59)
[2020-08-10] MEDS ORDERED: ALBUMIN 5% 12.5 GM/250 ML VIAL IV ONE (11:10)
[2020-08-10] MEDS ORDERED: BUPIVACAINE MPF 0.5% /EPI 30 ML VIAL ONE ×2 (11:15→11:16)
[2020-08-10 11:27] LABS: Osmolality,Calculated 272.7 MOS/KG (273-304)
[2020-08-10 11:38] LABS: INR 1.1; PT Patient Result 11.7 SECS (9.8-11.9); Partial Thromboplastin Time 27.2 SECS (23.9-33.8)
[2020-08-10] MEDS ORDERED: SEVOFLURANE 1 UNIT/15 MINUTE INH ONE (13:42)
[2020-08-10] MEDS ORDERED: GLYCOPYRROLATE 0.4 MG/2 ML VIAL ONE (13:52)
[2020-08-10] MEDS ORDERED: PHENYLEPHRINE 1 MG/10 ML SYRINGE IV ONE (13:52)
[2020-08-10] MEDS ORDERED: ACETAMINOPHEN 1,000 MG/100 ML VIAL IV ONE (13:56)
[2020-08-10] MEDS ORDERED: KETOROLAC 15 MG/1 ML VIAL IV PRN (14:03)
[2020-08-10] MEDS ORDERED: ALBUTEROL/IPRATROPIUM 3 ML NEB RESP TX PRN (14:03)
[2020-08-10] MEDS ORDERED: HYDROmorphone 2 MG/1 ML VIAL IV PRN ×2 (14:03)
[2020-08-10] MEDS ORDERED: ONDANSETRON 4 MG/2 ML VIAL IV PRN (14:03)
[2020-08-10 14:12] LABS: Bilirubin,Urine Negative (Negative); Blood, Urine Small mg/dL (Negative); Glucose,Urine (UA) Negative (Negative); Hyaline Casts,Urine 4 /LPF (0-3); Ketones,Urine 20 mg/dL (Negative); Mucus,Urine Occasional /LPF (Occasional); Nitrite,Urine Negative (Negative); Protein,Urine Negative; RBC,Urine 4 /HPF (0-4); Urine Appearance CLEAR (Clear); Urine Color Yellow (Yellow); Urine Specific Gravity 1.017 (1.001-1.035); Urine Urobilinogen < 2.0 EU/DL (0.2-1.0); WBC,Urine 1 /HPF (0-6)
[2020-08-10 14:18] LABS: Hematocrit 32.4 VOL% (42.0-52.0); Hemoglobin 9.9 GM/DL (14.0-18.0)
[2020-08-10] MEDS ORDERED: hydrALAZINE 20 MG/1 ML VIAL ONE (14:24)
[2020-08-10] MEDS ORDERED: hydrALAZINE 20 MG/1 ML VIAL IV ONE (14:27)
[2020-08-10] MEDS: LACTATED RINGERS 1,000 ML IV SCH ×2 (17:44→23:17)
[2020-08-10] MEDS: cefOXitin 2,000 MG in SYRINGE 1 EACH IV SCH (18:09)
[2020-08-10] MEDS: LATANOPROST 0.005% OPH SOLN 2.5 ML BOTTLE BOTH EYES SCH (20:54)
[2020-08-11] MEDS: cefOXitin 2,000 MG in SYRINGE 1 EACH IV SCH ×2 (00:40→06:35)
[2020-08-11] MEDS ORDERED: SODIUM CHLORIDE 0.9% 500 ML IV ONE (01:02)
[2020-08-11 01:29] LABS: Basophils % 0.1 % (0.0-0.8); Hematocrit 28.8 VOL% (42.0-52.0); Hemoglobin 8.5 GM/DL (14.0-18.0); Immature Granulocytes Absolute 0.25 #; Lymphocytes # 0.7 10*3/uL (1.4-4.0); Lymphocytes % 2.7 % (21.2-54.2); Mean Corpuscular HGB Conc 29.5 GM/DL (32-36); Monocytes % 4.5 % (1.7-12.7); Neutrophils % 91.7 % (38.7-73.9); Platelet Count 269 T/CUMM (130-400); Red Blood Count 3.03 MC/CUMM (3.8-5.5); Red Cell Distribution Width 15.6 % (9.3-17.3); White Blood Count 25.4 T/CUMM (4-12)
[2020-08-11 01:39] LABS: Albumin 2.4 G/DL (3.4-5.0); Bilirubin,Total 0.6 MG/DL (0.2-1.0); Calcium 8.1 MG/DL (8.5-10.1); Osmolality,Calculated 279.4 MOS/KG (273-304); Potassium 4.7 MMOL/L (3.5-5.1); Total Protein 4.8 G/DL (6.4-8.2)
[2020-08-11 01:47] LABS: Hypochromasia Slight; Lymphocytes 2 % (20-55); Platelet Estimate Normal; Segmented Neutrophils 98 % (50-85); Total Cells Counted 100
[2020-08-11 05:26] LABS: Basophils % 0.1 % (0.0-0.8); Hemoglobin 8.3 GM/DL (14.0-18.0); Immature Granulocytes % 0.8 %; Immature Granulocytes Absolute 0.17 #; Lymphocytes # 0.7 10*3/uL (1.4-4.0); Lymphocytes % 3.2 % (21.2-54.2); Mean Corpuscular HGB Conc 30.7 GM/DL (32-36); Mean Corpuscular Volume 93.8 FL (87-102); Mean Platelet Volume 9.2 FL (9.6-12.0); Monocytes % 6.8 % (1.7-12.7); Neutrophils % 89.1 % (38.7-73.9); Platelet Count 258 T/CUMM (130-400); Red Blood Count 2.88 MC/CUMM (3.8-5.5); Red Cell Distribution Width 15.3 % (9.3-17.3); White Blood Count 22.1 T/CUMM (4-12)
[2020-08-11 05:32] LABS: INR 1.1; PT Patient Result 12.1 SECS (9.8-11.9)
[2020-08-11 05:47] LABS: Albumin 2.2 G/DL (3.4-5.0); Bilirubin,Total 0.5 MG/DL (0.2-1.0); Calcium 7.9 MG/DL (8.5-10.1); Osmolality,Calculated 282.1 MOS/KG (273-304); Potassium 4.7 MMOL/L (3.5-5.1); Total Protein 4.6 G/DL (6.4-8.2)
[2020-08-11 06:03] LABS: Lymphocytes 2 % (20-55); Myelocytes 1 %; Segmented Neutrophils 93 % (50-85); Total Cells Counted 100
[2020-08-11 06:04] LABS: Anisocytosis 1+; Hypochromasia 3+; Macrocytosis 1+; Platelet Estimate Normal
[2020-08-11] MEDS: LACTATED RINGERS 1,000 ML IV SCH ×2 (07:03→16:08)
[2020-08-11] MEDS: lamoTRIgine 100 MG TABLET PO SCH ×2 (10:01→21:01)
[2020-08-11] MEDS: PANTOPRAZOLE 40 MG VIAL IV SCH (10:02)
[2020-08-11] MEDS: POLYETHYLENE GLYCOL POWDER 17 GM PACK PO SCH (11:20)
[2020-08-11 18:36] LABS: Basophils # 0.1 10*3/uL (0.0-0.2); Basophils % 0.3 % (0.0-0.8); Eosinophils # 0.1 10*3/uL (0.0-0.87); Eosinophils % 0.2 % (0.00-10.9); Hematocrit 28.3 VOL% (42.0-52.0); Hemoglobin 8.4 GM/DL (14.0-18.0); Immature Granulocytes % 0.9 %; Immature Granulocytes Absolute 0.19 #; Lymphocytes # 1.1 10*3/uL (1.4-4.0); Lymphocytes % 5.2 % (21.2-54.2); Mean Corpuscular HGB Conc 29.7 GM/DL (32-36); Mean Corpuscular Volume 95.9 FL (87-102); Mean Platelet Volume 8.9 FL (9.6-12.0); Monocytes % 9.2 % (1.7-12.7); Neutrophils % 84.2 % (38.7-73.9); Platelet Count 262 T/CUMM (130-400); Red Blood Count 2.95 MC/CUMM (3.8-5.5); Red Cell Distribution Width 15.9 % (9.3-17.3); White Blood Count 20.9 T/CUMM (4-12)
[2020-08-11] MEDS: LATANOPROST 0.005% OPH SOLN 2.5 ML BOTTLE BOTH EYES SCH (21:59)
[2020-08-11 22:45] LABS: Lymphocytes 9 % (20-55); Segmented Neutrophils 89 % (50-85); Total Cells Counted 100
[2020-08-11 22:46] LABS: Atypical Lymphocytes Few; Platelet Estimate Adequate
[2020-08-12] MEDS: LACTATED RINGERS 1,000 ML IV SCH ×3 (02:51→19:14)
[2020-08-12 05:39] LABS: Basophils # 0.1 10*3/uL (0.0-0.2); Basophils % 0.4 % (0.0-0.8); Eosinophils # 0.1 10*3/uL (0.0-0.87); Eosinophils % 0.9 % (0.00-10.9); Hematocrit 25.3 VOL% (42.0-52.0); Hemoglobin 7.6 GM/DL (14.0-18.0); Immature Granulocytes % 0.9 %; Immature Granulocytes Absolute 0.13 #; Lymphocytes # 0.9 10*3/uL (1.4-4.0); Lymphocytes % 6.4 % (21.2-54.2); Mean Corpuscular Volume 94.4 FL (87-102); Mean Platelet Volume 9.3 FL (9.6-12.0); Monocytes % 10.1 % (1.7-12.7); Neutrophils % 81.3 % (38.7-73.9); Platelet Count 236 T/CUMM (130-400); Red Blood Count 2.68 MC/CUMM (3.8-5.5); Red Cell Distribution Width 15.8 % (9.3-17.3); White Blood Count 13.8 T/CUMM (4-12)
[2020-08-12 05:56] LABS: Calcium 7.8 MG/DL (8.5-10.1); Osmolality,Calculated 279.4 MOS/KG (273-304); Potassium 3.7 MMOL/L (3.5-5.1)
[2020-08-12 06:14] LABS: Hypochromasia 1+; Lymphocytes 4 % (20-55); Macrocytosis 1+; Segmented Neutrophils 94 % (50-85); Total Cells Counted 100
[2020-08-12 06:15] LABS: Platelet Estimate Normal
[2020-08-12] MEDS: PANTOPRAZOLE 40 MG TABLET PO SCH (06:26)
[2020-08-12] MEDS ORDERED: LACTATED RINGERS 500 ML IV ONE (09:52)
[2020-08-12] MEDS: TAMSULOSIN 0.4 MG CAPSULE PO SCH ×2 (10:09→21:11)
[2020-08-12] MEDS: lamoTRIgine 100 MG TABLET PO SCH ×2 (10:09→21:09)
[2020-08-12 19:38] LABS: Hematocrit 26.9 VOL% (42.0-52.0)
[2020-08-12 19:40] LABS: Hemoglobin 8.3 GM/DL (14.0-18.0)
[2020-08-12] MEDS: DILTIAZEM CD 180 MG CAPSULE PO SCH (21:10)
[2020-08-12] MEDS: LATANOPROST 0.005% OPH SOLN 2.5 ML BOTTLE BOTH EYES SCH (21:11)
[2020-08-12] MEDS: ALBUMIN 25% 25 GM in PREMIX 1 EACH IV SCH (22:04)
[2020-08-13] MEDS: LACTATED RINGERS 1,000 ML IV SCH ×3 (03:25→19:55)
[2020-08-13] MEDS: ALBUMIN 25% 25 GM in PREMIX 1 EACH IV SCH ×3 (05:40→21:34)
[2020-08-13] MEDS: PANTOPRAZOLE 40 MG TABLET PO SCH (05:40)
[2020-08-13 06:14] LABS: Basophils % 0.3 % (0.0-0.8); Eosinophils % 0.1 % (0.00-10.9); Hematocrit 26.2 VOL% (42.0-52.0); Hemoglobin 8.2 GM/DL (14.0-18.0); Immature Granulocytes % 0.9 %; Immature Granulocytes Absolute 0.13 #; Lymphocytes # 0.6 10*3/uL (1.4-4.0); Lymphocytes % 3.9 % (21.2-54.2); Mean Corpuscular HGB Conc 31.3 GM/DL (32-36); Mean Corpuscular Volume 91.3 FL (87-102); Mean Platelet Volume 10.5 FL (9.6-12.0); Neutrophils % 85.8 % (38.7-73.9); Platelet Count 178 T/CUMM (130-400); Red Blood Count 2.87 MC/CUMM (3.8-5.5); Red Cell Distribution Width 15.6 % (9.3-17.3); White Blood Count 14.9 T/CUMM (4-12)
[2020-08-13 06:49] LABS: Calcium 8.1 MG/DL (8.5-10.1); Osmolality,Calculated 274.7 MOS/KG (273-304); Potassium 4.4 MMOL/L (3.5-5.1)
[2020-08-13 07:09] LABS: Anisocytosis 2+; Band Neutrophils 7 % (0-10); Lymphocytes 4 % (20-55); Platelet Estimate Normal; Segmented Neutrophils 79 % (50-85); Total Cells Counted 100
[2020-08-13] MEDS: TAMSULOSIN 0.4 MG CAPSULE PO SCH ×2 (10:03→21:34)
[2020-08-13] MEDS: lamoTRIgine 100 MG TABLET PO SCH ×2 (10:04→21:34)
[2020-08-13] MEDS: CIPROFLOXACIN INJ 400 MG in PREMIX 1 EACH IV SCH ×2 (12:25→23:25)
[2020-08-13] MEDS: LATANOPROST 0.005% OPH SOLN 2.5 ML BOTTLE BOTH EYES SCH (21:34)
[2020-08-13] MEDS: DILTIAZEM CD 180 MG CAPSULE PO SCH (21:34)
[2020-08-14] MEDS: ALBUMIN 25% 25 GM in PREMIX 1 EACH IV SCH ×3 (05:20→21:17)
[2020-08-14] MEDS: LACTATED RINGERS 1,000 ML IV SCH ×2 (05:20→13:44)
[2020-08-14 05:52] LABS: Basophils % 0.2 % (0.0-0.8); Eosinophils # 0.1 10*3/uL (0.0-0.87); Eosinophils % 1.3 % (0.00-10.9); Hematocrit 24.1 VOL% (42.0-52.0); Hemoglobin 7.3 GM/DL (14.0-18.0); Immature Granulocytes % 0.5 %; Immature Granulocytes Absolute 0.03 #; Lymphocytes # 0.6 10*3/uL (1.4-4.0); Lymphocytes % 9.8 % (21.2-54.2); Mean Corpuscular HGB Conc 30.3 GM/DL (32-36); Mean Corpuscular Volume 93.4 FL (87-102); Mean Platelet Volume 9.8 FL (9.6-12.0); Monocytes % 17.5 % (1.7-12.7); Neutrophils % 70.7 % (38.7-73.9); Platelet Count 215 T/CUMM (130-400); Red Blood Count 2.58 MC/CUMM (3.8-5.5); Red Cell Distribution Width 15.5 % (9.3-17.3); White Blood Count 5.9 T/CUMM (4-12)
[2020-08-14 05:53] LABS: Calcium 8.1 MG/DL (8.5-10.1); Osmolality,Calculated 276.5 MOS/KG (273-304); Potassium 3.6 MMOL/L (3.5-5.1)
[2020-08-14] MEDS: PANTOPRAZOLE 40 MG TABLET PO SCH (06:15)
[2020-08-14 06:44] LABS: Band Neutrophils 31 % (0-10); Eosinophils 3 % (0-10); Lymphocytes 9 % (20-55); Metamyelocytes 2 %; Platelet Estimate Normal; Segmented Neutrophils 37 % (50-85); Total Cells Counted 100
[2020-08-14 06:45] LABS: Anisocytosis 2+; Macrocytosis Slight; Polychromasia Slight
[2020-08-14] MEDS: TAMSULOSIN 0.4 MG CAPSULE PO SCH ×2 (09:15→21:11)
[2020-08-14] MEDS: lamoTRIgine 100 MG TABLET PO SCH ×2 (09:15→21:09)
[2020-08-14] MEDS ORDERED: SODIUM CHLORIDE 0.9% 1,000 ML IV PRN (10:59)
[2020-08-14] MEDS ORDERED: FUROSEMIDE 20 MG/2 ML VIAL IV ONE (11:04)
[2020-08-14] MEDS: CIPROFLOXACIN INJ 400 MG in PREMIX 1 EACH IV SCH ×2 (14:05→23:45)
[2020-08-14] MEDS: DILTIAZEM CD 180 MG CAPSULE PO SCH (21:14)
[2020-08-14] MEDS: LATANOPROST 0.005% OPH SOLN 2.5 ML BOTTLE BOTH EYES SCH (21:14)
[2020-08-15] MEDS: LACTATED RINGERS 1,000 ML IV SCH ×4 (00:38→10:25)
[2020-08-15] MEDS ORDERED: FUROSEMIDE 20 MG/2 ML VIAL IV ONE (01:30)
[2020-08-15] MEDS: PANTOPRAZOLE 40 MG TABLET PO SCH (05:46)
[2020-08-15] MEDS: ALBUMIN 25% 25 GM in PREMIX 1 EACH IV SCH ×3 (05:46→21:19)
[2020-08-15 07:23] LABS: Basophils % 0.6 % (0.0-0.8); Eosinophils # 0.1 10*3/uL (0.0-0.87); Eosinophils % 2.2 % (0.00-10.9); Hematocrit 32.3 VOL% (42.0-52.0); Immature Granulocytes % 1.6 %; Immature Granulocytes Absolute 0.08 #; Lymphocytes # 0.7 10*3/uL (1.4-4.0); Lymphocytes % 14.2 % (21.2-54.2); Mean Corpuscular HGB Conc 31.3 GM/DL (32-36); Mean Corpuscular Volume 89.2 FL (87-102); Mean Platelet Volume 9.5 FL (9.6-12.0); Monocytes % 24.6 % (1.7-12.7); Neutrophils % 56.8 % (38.7-73.9); Platelet Count 246 T/CUMM (130-400); Red Cell Distribution Width 15.7 % (9.3-17.3); White Blood Count 5.1 T/CUMM (4-12)
[2020-08-15 07:31] LABS: Calcium 8.7 MG/DL (8.5-10.1); Osmolality,Calculated 274.7 MOS/KG (273-304); Potassium 3.5 MMOL/L (3.5-5.1)
[2020-08-15 07:42] LABS: Hemoglobin 10.1 GM/DL (14.0-18.0); Red Blood Count 3.62 MC/CUMM (3.8-5.5)
[2020-08-15 08:01] LABS: Anisocytosis 1+; Band Neutrophils 37 % (0-10); Eosinophils 4 % (0-10); Hypochromasia 1+; Lymphocytes 14 % (20-55); Macrocytosis 1+; Metamyelocytes 3 %; Nucleated Red Blood Cells 1 (0-5); Platelet Estimate Normal; Polychromasia Slight; Segmented Neutrophils 25 % (50-85); Total Cells Counted 100
[2020-08-15] MEDS: lamoTRIgine 100 MG TABLET PO SCH ×2 (09:51→21:16)
[2020-08-15] MEDS: TAMSULOSIN 0.4 MG CAPSULE PO SCH ×2 (09:52→21:17)
[2020-08-15] MEDS: CIPROFLOXACIN INJ 400 MG in PREMIX 1 EACH IV SCH ×2 (12:00→23:12)
[2020-08-15] MEDS: POLYETHYLENE GLYCOL POWDER 17 GM PACK PO SCH (13:43)
[2020-08-15] MEDS: DOCUSATE SODIUM 100 MG CAPSULE PO SCH (13:43)
[2020-08-15] MEDS: LATANOPROST 0.005% OPH SOLN 2.5 ML BOTTLE BOTH EYES SCH (21:18)
[2020-08-15] MEDS: DILTIAZEM CD 180 MG CAPSULE PO SCH (21:18)
[2020-08-16 05:35] LABS: Basophils % 0.4 % (0.0-0.8); Eosinophils # 0.1 10*3/uL (0.0-0.87); Eosinophils % 2.6 % (0.00-10.9); Hematocrit 31.6 VOL% (42.0-52.0); Hemoglobin 9.7 GM/DL (14.0-18.0); Immature Granulocytes % 1.3 %; Immature Granulocytes Absolute 0.07 #; Lymphocytes # 0.5 10*3/uL (1.4-4.0); Lymphocytes % 9.5 % (21.2-54.2); Mean Corpuscular HGB Conc 30.7 GM/DL (32-36); Mean Platelet Volume 9.8 FL (9.6-12.0); Monocytes % 26.3 % (1.7-12.7); Neutrophils % 59.9 % (38.7-73.9); Platelet Count 264 T/CUMM (130-400); Red Blood Count 3.51 MC/CUMM (3.8-5.5); Red Cell Distribution Width 16.1 % (9.3-17.3); White Blood Count 5.5 T/CUMM (4-12)
[2020-08-16] MEDS: ALBUMIN 25% 25 GM in PREMIX 1 EACH IV SCH (05:50)
[2020-08-16 05:51] LABS: Calcium 8.4 MG/DL (8.5-10.1); Osmolality,Calculated 272.7 MOS/KG (273-304); Potassium 3.1 MMOL/L (3.5-5.1)
[2020-08-16] MEDS: PANTOPRAZOLE 40 MG TABLET PO SCH (05:51)
[2020-08-16 06:01] LABS: Band Neutrophils 7 % (0-10); Eosinophils 2 % (0-10); Lymphocytes 15 % (20-55); Nucleated Red Blood Cells 1 (0-5); Segmented Neutrophils 54 % (50-85); Total Cells Counted 100
[2020-08-16 06:09] LABS: Hypochromasia 2+; Platelet Estimate Normal
[2020-08-16 06:10] LABS: Anisocytosis Slight; Macrocytosis Slight; Polychromasia Few
[2020-08-16] MEDS ORDERED: POTASSIUM CHLORIDE 20 MEQ TABLET PO STA (08:19)
[2020-08-16] MEDS: TAMSULOSIN 0.4 MG CAPSULE PO SCH ×2 (09:14→21:12)
[2020-08-16] MEDS: lamoTRIgine 100 MG TABLET PO SCH ×2 (09:14→21:12)
[2020-08-16] MEDS: POLYETHYLENE GLYCOL POWDER 17 GM PACK PO SCH (09:14)
[2020-08-16] MEDS: DOCUSATE SODIUM 100 MG CAPSULE PO SCH (09:14)
[2020-08-16] MEDS ORDERED: POTASSIUM CHLORIDE 20 MEQ TABLET PO ONE (10:00)
[2020-08-16] MEDS: CIPROFLOXACIN INJ 400 MG in PREMIX 1 EACH IV SCH (12:17)
[2020-08-16] MEDS ORDERED: ALUMINUM/MAGNES/SIMETH MAX STR 30 ML UDCUP PO PRN (13:04)
[2020-08-16] MEDS: LATANOPROST 0.005% OPH SOLN 2.5 ML BOTTLE BOTH EYES SCH (21:12)
[2020-08-16] MEDS: DILTIAZEM CD 180 MG CAPSULE PO SCH (21:13)
[2020-08-17 05:38] LABS: Basophils # 0.1 10*3/uL (0.0-0.2); Basophils % 0.5 % (0.0-0.8); Eosinophils # 0.1 10*3/uL (0.0-0.87); Eosinophils % 1.1 % (0.00-10.9); Hematocrit 34.2 VOL% (42.0-52.0); Hemoglobin 10.6 GM/DL (14.0-18.0); Immature Granulocytes % 2.5 %; Immature Granulocytes Absolute 0.25 #; Lymphocytes # 0.6 10*3/uL (1.4-4.0); Lymphocytes % 6.3 % (21.2-54.2); Mean Corpuscular Volume 90.5 FL (87-102); Mean Platelet Volume 9.7 FL (9.6-12.0); Monocytes % 23.9 % (1.7-12.7); NRBC # 0.02 10*3/uL; Neutrophils % 65.7 % (38.7-73.9); Platelet Count 285 T/CUMM (130-400); Red Blood Count 3.78 MC/CUMM (3.8-5.5); Red Cell Distribution Width 15.9 % (9.3-17.3); White Blood Count 9.9 T/CUMM (4-12)
[2020-08-17] MEDS: PANTOPRAZOLE 40 MG TABLET PO SCH (05:59)
[2020-08-17 06:08] LABS: Band Neutrophils 4 % (0-10); Hypochromasia 1+; Lymphocytes 3 % (20-55); Microcytosis 1+; Platelet Estimate Adequate; Segmented Neutrophils 74 % (50-85); Total Cells Counted 100
[2020-08-17] MEDS: DOCUSATE SODIUM 100 MG CAPSULE PO SCH (08:46)
[2020-08-17] MEDS: TAMSULOSIN 0.4 MG CAPSULE PO SCH ×2 (08:47→21:04)
[2020-08-17] MEDS: lamoTRIgine 100 MG TABLET PO SCH ×2 (08:47→21:03)
[2020-08-17] MEDS: POLYETHYLENE GLYCOL POWDER 17 GM PACK PO SCH (08:47)
[2020-08-17] MEDS: CIPROFLOXACIN INJ 400 MG in PREMIX 1 EACH IV SCH ×3 (11:27→23:04)
[2020-08-17] MEDS ORDERED: POTASSIUM CHLORIDE 20 MEQ TABLET PO ONE (15:08)
[2020-08-17] MEDS: LATANOPROST 0.005% OPH SOLN 2.5 ML BOTTLE BOTH EYES SCH (21:03)
[2020-08-17] MEDS: DILTIAZEM CD 180 MG CAPSULE PO SCH (21:04)
[2020-08-18 05:51] LABS: Basophils # 0.1 10*3/uL (0.0-0.2); Basophils % 0.7 % (0.0-0.8); Eosinophils # 0.1 10*3/uL (0.0-0.87); Eosinophils % 0.9 % (0.00-10.9); Hemoglobin 11.6 GM/DL (14.0-18.0); Immature Granulocytes % 4.9 %; Immature Granulocytes Absolute 0.59 #; Lymphocytes # 0.9 10*3/uL (1.4-4.0); Lymphocytes % 7.1 % (21.2-54.2); Mean Corpuscular HGB Conc 30.5 GM/DL (32-36); Mean Corpuscular Volume 91.6 FL (87-102); Mean Platelet Volume 9.5 FL (9.6-12.0); Monocytes % 21.4 % (1.7-12.7); NRBC # 0.02 10*3/uL; Platelet Count 303 T/CUMM (130-400); Red Blood Count 4.15 MC/CUMM (3.8-5.5); Red Cell Distribution Width 16.4 % (9.3-17.3)
[2020-08-18] MEDS: PANTOPRAZOLE 40 MG TABLET PO SCH (06:07)
[2020-08-18 06:10] LABS: Band Neutrophils 5 % (0-10); Eosinophils 4 % (0-10); Lymphocytes 12 % (20-55); Segmented Neutrophils 58 % (50-85); Total Cells Counted 100
[2020-08-18 06:11] LABS: Hypochromasia Slight; Macrocytosis Slight; Platelet Estimate Adequate; Polychromasia Slight
[2020-08-18 06:22] LABS: Calcium 8.4 MG/DL (8.5-10.1); Osmolality,Calculated 277.7 MOS/KG (273-304); Potassium 3.7 MMOL/L (3.5-5.1)
[2020-08-18] MEDS: lamoTRIgine 100 MG TABLET PO SCH ×2 (09:02→20:46)
[2020-08-18] MEDS: DOCUSATE SODIUM 100 MG CAPSULE PO SCH (09:02)
[2020-08-18] MEDS: TAMSULOSIN 0.4 MG CAPSULE PO SCH ×2 (09:02→20:46)
[2020-08-18] MEDS: POLYETHYLENE GLYCOL POWDER 17 GM PACK PO SCH (09:02)
[2020-08-18] MEDS ORDERED: BISACODYL 10 MG SUPP RECTAL ONE (10:13)
[2020-08-18] MEDS: METOCLOPRAMIDE 10 MG TABLET PO SCH ×2 (11:25→16:31)
[2020-08-18] MEDS: CIPROFLOXACIN INJ 400 MG in PREMIX 1 EACH IV SCH ×2 (11:25→22:43)
[2020-08-18] MEDS ORDERED: POTASSIUM CHLORIDE 20 MEQ TABLET PO ONE (12:19)
[2020-08-18] MEDS: LATANOPROST 0.005% OPH SOLN 2.5 ML BOTTLE BOTH EYES SCH (20:46)
[2020-08-18] MEDS: DILTIAZEM CD 180 MG CAPSULE PO SCH (20:47)
[2020-08-19] MEDS: PANTOPRAZOLE 40 MG TABLET PO SCH (05:59)
[2020-08-19] MEDS: lamoTRIgine 100 MG TABLET PO SCH (09:58)
[2020-08-19] MEDS: METOCLOPRAMIDE 10 MG TABLET PO SCH ×3 (09:58→15:47)
[2020-08-19] MEDS: TAMSULOSIN 0.4 MG CAPSULE PO SCH (09:58)
[2020-08-19] MEDS: DOCUSATE SODIUM 100 MG CAPSULE PO SCH (09:58)
[2020-08-19] MEDS: POLYETHYLENE GLYCOL POWDER 17 GM PACK PO SCH (09:59)
[2020-08-19] MEDS: CIPROFLOXACIN INJ 400 MG in PREMIX 1 EACH IV SCH (12:19)
[2020-08-19 16:28] VITALS: BP 131/72
== END 2020-08-19 18:10 | disposition swing bed (61) | DRG 330 ==
LOC: N.ED 01:41 → N.EDINP 03:02 → INTOOBSV 03:02 → N.EDINP 04:00 → N.3E 04:23 → N.CC 08-08 17:09 → N.3E 08-09 16:56
PROVIDERS: ADMIT Family Medicine; ATTEND Family Medicine
PROC: IRAGMES (2020-08-04 13:55)

== ENCOUNTER 2020-08-20 17:26 | Inpatient (IN) ==
[2020-08-20] MEDS ORDERED: ONDANSETRON 4 MG/2 ML VIAL IV STA (18:30)
[2020-08-20] MEDS ORDERED: SODIUM CHLORIDE 0.9% 1,000 ML IV STA (18:30)
[2020-08-20 18:39] LABS: Basophils # 0.1 10*3/uL (0.0-0.2); Basophils % 0.6 % (0.0-0.8); Eosinophils # 0.1 10*3/uL (0.0-0.87); Eosinophils % 0.3 % (0.00-10.9); Immature Granulocytes % 2.3 %; Immature Granulocytes Absolute 0.36 #; Mean Corpuscular HGB Conc 30.8 GM/DL (32-36); Mean Corpuscular Volume 91.1 FL (87-102); Mean Platelet Volume 9.6 FL (9.6-12.0); Monocytes % 12.6 % (1.7-12.7); Neutrophils % 78.2 % (38.7-73.9); Platelet Count 297 T/CUMM (130-400); Red Blood Count 4.28 MC/CUMM (3.8-5.5); Red Cell Distribution Width 16.4 % (9.3-17.3); White Blood Count 15.8 T/CUMM (4-12)
[2020-08-20 18:53] LABS: Albumin 3.1 G/DL (3.4-5.0); Bilirubin,Total 0.5 MG/DL (0.2-1.0); Calcium 8.1 MG/DL (8.5-10.1); Osmolality,Calculated 279.7 MOS/KG (273-304); Potassium 4.2 MMOL/L (3.5-5.1); Total Protein 6.4 G/DL (6.4-8.2)
[2020-08-20 19:05] LABS: Bilirubin,Urine Small mg/dL (Negative); Blood, Urine Negative (Negative); Glucose,Urine (UA) Negative (Negative); Hyaline Casts,Urine 1 /LPF (0-3); Ketones,Urine Negative (Negative); Mucus,Urine Few /LPF (Occasional); Nitrite,Urine Negative (Negative); Protein,Urine 30 MG/DL; RBC,Urine 1 /HPF (0-4); Squamous Epithelial Cell,Urine Occasional /HPF (0-10); Urine Appearance CLEAR (Clear); Urine Color Amber (Yellow); Urine Specific Gravity 1.027 (1.001-1.035); WBC,Urine 2 /HPF (0-6)
[2020-08-20 19:09] LABS: Band Neutrophils 8 % (0-10); Lymphocytes 4 % (20-55); Metamyelocytes 1 %; Segmented Neutrophils 78 % (50-85); Total Cells Counted 100
[2020-08-20 19:11] LABS: Anisocytosis Slight; Dohle Bodies 1+; Hypochromasia Slight; Macrocytosis Slight; Microcytosis Slight; Polychromasia Few; Toxic Granulation 1+
[2020-08-20 19:12] LABS: Platelet Estimate Normal
[2020-08-20] MEDS ORDERED: PIPERACILLIN/TAZOBACTAM 3,375 MG in SODIUM CHLORIDE 0.9% 100 ML IV STA (19:43)
[2020-08-20] MEDS ORDERED: ACETAMINOPHEN 325 MG TABLET PO PRN (19:53)
[2020-08-20] MEDS ORDERED: MORPHINE 4 MG/1 ML VIAL IV PRN (19:53)
[2020-08-20] MEDS ORDERED: ONDANSETRON 4 MG/2 ML VIAL IV PRN (19:53)
[2020-08-20] MEDS ORDERED: ACETAMINOPHEN 500 MG TABLET PO STA (19:55)
[2020-08-20] MEDS: METOCLOPRAMIDE 10 MG/2 ML VIAL IV SCH (20:41)
[2020-08-20] MEDS: SODIUM CHLORIDE 0.9% 1,000 ML IV SCH (23:27)
[2020-08-21] MEDS: METOCLOPRAMIDE 10 MG/2 ML VIAL IV SCH ×4 (01:26→21:01)
[2020-08-21] MEDS: PIPERACILLIN/TAZOBACTAM 3,375 MG in SODIUM CHLORIDE 0.9% 100 ML IV SCH ×3 (03:40→21:01)
[2020-08-21 05:25] LABS: Basophils # 0.1 10*3/uL (0.0-0.2); Basophils % 0.6 % (0.0-0.8); Eosinophils # 0.1 10*3/uL (0.0-0.87); Hematocrit 35.4 VOL% (42.0-52.0); Hemoglobin 10.9 GM/DL (14.0-18.0); Immature Granulocytes % 1.7 %; Immature Granulocytes Absolute 0.24 #; Lymphocytes % 6.7 % (21.2-54.2); Mean Corpuscular HGB Conc 30.8 GM/DL (32-36); Mean Platelet Volume 9.8 FL (9.6-12.0); Monocytes % 16.5 % (1.7-12.7); Neutrophils % 73.5 % (38.7-73.9); Platelet Count 243 T/CUMM (130-400); Red Blood Count 3.89 MC/CUMM (3.8-5.5); Red Cell Distribution Width 16.3 % (9.3-17.3); White Blood Count 14.3 T/CUMM (4-12)
[2020-08-21] MEDS: SODIUM CHLORIDE 0.9% 1,000 ML IV SCH ×3 (05:52→21:02)
[2020-08-21 05:54] LABS: Albumin 2.4 G/DL (3.4-5.0); Bilirubin,Total 1.6 MG/DL (0.2-1.0); Calcium 7.3 MG/DL (8.5-10.1); Osmolality,Calculated 282.4 MOS/KG (273-304)
[2020-08-21 06:53] LABS: Band Neutrophils 1 % (0-10); Lymphocytes 8 % (20-55); Total Cells Counted 100
[2020-08-21 06:54] LABS: Platelet Estimate Normal; Segmented Neutrophils 72 % (50-85)
[2020-08-21] MEDS: PANTOPRAZOLE 40 MG VIAL IV SCH (08:53)
[2020-08-21] MEDS ORDERED: ALUMINUM/MAGNES/SIMETH MAX STR 30 ML UDCUP PO PRN (10:59)
[2020-08-21] MEDS: lamoTRIgine 100 MG TABLET PO SCH (21:00)
[2020-08-21] MEDS: TAMSULOSIN 0.4 MG CAPSULE PO SCH (21:00)
[2020-08-21] MEDS: DILTIAZEM CD 180 MG CAPSULE PO SCH (21:00)
[2020-08-21] MEDS: LATANOPROST 0.005% OPH SOLN 2.5 ML BOTTLE BOTH EYES SCH (21:01)
[2020-08-22] MEDS: METOCLOPRAMIDE 10 MG/2 ML VIAL IV SCH ×2 (02:59→10:12)
[2020-08-22] MEDS: PIPERACILLIN/TAZOBACTAM 3,375 MG in SODIUM CHLORIDE 0.9% 100 ML IV SCH ×3 (03:32→21:04)
[2020-08-22] MEDS: SODIUM CHLORIDE 0.9% 1,000 ML IV SCH ×3 (03:33→21:05)
[2020-08-22 05:11] LABS: Basophils # 0.1 10*3/uL (0.0-0.2); Basophils % 0.4 % (0.0-0.8); Eosinophils # 0.3 10*3/uL (0.0-0.87); Eosinophils % 2.2 % (0.00-10.9); Hematocrit 35.7 VOL% (42.0-52.0); Hemoglobin 10.6 GM/DL (14.0-18.0); Immature Granulocytes % 1.8 %; Lymphocytes # 1.2 10*3/uL (1.4-4.0); Lymphocytes % 10.2 % (21.2-54.2); Mean Corpuscular HGB Conc 29.7 GM/DL (32-36); Mean Corpuscular Volume 93.9 FL (87-102); Mean Platelet Volume 9.8 FL (9.6-12.0); Monocytes % 13.7 % (1.7-12.7); Neutrophils % 71.7 % (38.7-73.9); Platelet Count 229 T/CUMM (130-400); Red Cell Distribution Width 16.4 % (9.3-17.3); White Blood Count 11.3 T/CUMM (4-12)
[2020-08-22 05:33] LABS: Calcium 6.5 MG/DL (8.5-10.1); Osmolality,Calculated 292.4 MOS/KG (273-304); Potassium 3.7 MMOL/L (3.5-5.1)
[2020-08-22 05:50] LABS: Band Neutrophils 2 % (0-10); Eosinophils 4 % (0-10); Hypochromasia Slight; Lymphocytes 12 % (20-55); Platelet Estimate Normal; Segmented Neutrophils 73 % (50-85); Total Cells Counted 100
[2020-08-22] MEDS: PANTOPRAZOLE 40 MG VIAL IV SCH (09:39)
[2020-08-22] MEDS: lamoTRIgine 100 MG TABLET PO SCH ×2 (09:39→21:04)
[2020-08-22] MEDS: DOCUSATE SODIUM 100 MG CAPSULE PO SCH (09:39)
[2020-08-22] MEDS: POLYETHYLENE GLYCOL POWDER 17 GM PACK PO SCH (09:39)
[2020-08-22] MEDS: METOCLOPRAMIDE 5 MG TABLET PO SCH (09:39)
[2020-08-22] MEDS: TAMSULOSIN 0.4 MG CAPSULE PO SCH ×2 (09:39→21:04)
[2020-08-22] MEDS: DILTIAZEM CD 180 MG CAPSULE PO SCH (21:04)
[2020-08-22] MEDS: LATANOPROST 0.005% OPH SOLN 2.5 ML BOTTLE BOTH EYES SCH (21:04)
[2020-08-23] MEDS: PIPERACILLIN/TAZOBACTAM 3,375 MG in SODIUM CHLORIDE 0.9% 100 ML IV SCH ×3 (04:04→20:41)
[2020-08-23] MEDS: SODIUM CHLORIDE 0.9% 1,000 ML IV SCH ×3 (04:08→20:47)
[2020-08-23 06:15] LABS: Basophils # 0.1 10*3/uL (0.0-0.2); Basophils % 0.6 % (0.0-0.8); Eosinophils # 0.2 10*3/uL (0.0-0.87); Eosinophils % 1.9 % (0.00-10.9); Hematocrit 35.4 VOL% (42.0-52.0); Hemoglobin 10.9 GM/DL (14.0-18.0); Immature Granulocytes % 2.3 %; Immature Granulocytes Absolute 0.25 #; Lymphocytes # 1.2 10*3/uL (1.4-4.0); Lymphocytes % 11.2 % (21.2-54.2); Mean Corpuscular HGB Conc 30.8 GM/DL (32-36); Mean Corpuscular Volume 91.2 FL (87-102); Mean Platelet Volume 9.7 FL (9.6-12.0); Monocytes % 12.1 % (1.7-12.7); Neutrophils % 71.9 % (38.7-73.9); Platelet Count 236 T/CUMM (130-400); Red Blood Count 3.88 MC/CUMM (3.8-5.5); Red Cell Distribution Width 16.3 % (9.3-17.3)
[2020-08-23 06:36] LABS: Eosinophils 3 % (0-10); Hypochromasia Slight; Lymphocytes 8 % (20-55); Microcytosis Slight; Platelet Estimate Adequate; Segmented Neutrophils 81 % (50-85); Total Cells Counted 100
[2020-08-23 06:37] LABS: Calcium 7.5 MG/DL (8.5-10.1); Potassium 3.6 MMOL/L (3.5-5.1)
[2020-08-23] MEDS: TAMSULOSIN 0.4 MG CAPSULE PO SCH ×2 (08:49→20:45)
[2020-08-23] MEDS: METOCLOPRAMIDE 5 MG TABLET PO SCH (08:49)
[2020-08-23] MEDS: POLYETHYLENE GLYCOL POWDER 17 GM PACK PO SCH (08:49)
[2020-08-23] MEDS: DOCUSATE SODIUM 100 MG CAPSULE PO SCH (08:49)
[2020-08-23] MEDS: lamoTRIgine 100 MG TABLET PO SCH ×2 (08:49→20:45)
[2020-08-23] MEDS: PANTOPRAZOLE 40 MG VIAL IV SCH (08:49)
[2020-08-23] MEDS: DILTIAZEM CD 180 MG CAPSULE PO SCH (20:45)
[2020-08-23] MEDS: LATANOPROST 0.005% OPH SOLN 2.5 ML BOTTLE BOTH EYES SCH (21:34)
[2020-08-24] MEDS: PIPERACILLIN/TAZOBACTAM 3,375 MG in SODIUM CHLORIDE 0.9% 100 ML IV SCH (04:03)
[2020-08-24] MEDS: SODIUM CHLORIDE 0.9% 1,000 ML IV SCH (04:47)
[2020-08-24 05:43] LABS: Basophils # 0.1 10*3/uL (0.0-0.2); Basophils % 0.7 % (0.0-0.8); Eosinophils # 0.2 10*3/uL (0.0-0.87); Eosinophils % 1.3 % (0.00-10.9); Hematocrit 35.4 VOL% (42.0-52.0); Hemoglobin 10.9 GM/DL (14.0-18.0); Immature Granulocytes % 2.7 %; Immature Granulocytes Absolute 0.37 #; Lymphocytes # 1.3 10*3/uL (1.4-4.0); Lymphocytes % 9.2 % (21.2-54.2); Mean Corpuscular HGB Conc 30.8 GM/DL (32-36); Mean Corpuscular Volume 91.5 FL (87-102); Mean Platelet Volume 9.4 FL (9.6-12.0); Monocytes % 9.9 % (1.7-12.7); Neutrophils % 76.2 % (38.7-73.9); Platelet Count 257 T/CUMM (130-400); Red Blood Count 3.87 MC/CUMM (3.8-5.5); Red Cell Distribution Width 16.7 % (9.3-17.3); White Blood Count 13.6 T/CUMM (4-12)
[2020-08-24 06:04] LABS: Calcium 7.6 MG/DL (8.5-10.1); Osmolality,Calculated 287.7 MOS/KG (273-304); Potassium 3.3 MMOL/L (3.5-5.1)
[2020-08-24] MEDS ORDERED: POTASSIUM CHLORIDE 20 MEQ TABLET PO ONE (08:30)
[2020-08-24] MEDS: TAMSULOSIN 0.4 MG CAPSULE PO SCH (09:54)
[2020-08-24] MEDS: lamoTRIgine 100 MG TABLET PO SCH (09:54)
[2020-08-24] MEDS: METOCLOPRAMIDE 5 MG TABLET PO SCH (09:54)
[2020-08-24] MEDS: DOCUSATE SODIUM 100 MG CAPSULE PO SCH (09:54)
[2020-08-24] MEDS: POLYETHYLENE GLYCOL POWDER 17 GM PACK PO SCH (09:54)
[2020-08-24] MEDS: PANTOPRAZOLE 40 MG VIAL IV SCH ×2 (09:57→10:34)
[2020-08-24 16:44] VITALS: BP 145/88
[2020-08-28] MEDS ORDERED: ERGOCALCIFEROL 50,000 UNIT CAPSULE PO SCH (09:00)
== END 2020-08-24 17:57 | DRG 388 ==
LOC: EDUNIT# → EDBD → N.ED 17:26 → N.EDINP 19:52 → N.3E 20:44
PROVIDERS: ADMIT Family Medicine; ATTEND Family Medicine